=== PATIENT | male | born 1950 | race Caucasian/White ===

== ENCOUNTER 2020-02-22 08:48 | Outpatient (CLI) | payer MEDICARE, OTHER ==
[~2020-02-22] VITALS: Ht 177.8 cm; Wt 129.8 kg
[2020-02-22] VITALS (11 sets, daily range): BP systolic 82–95; BP diastolic 42–57
[2020-02-22] MEDS ORDERED: ALBUMIN HUMAN 25% 100 ML IV ONE ×6 (09:42→11:15)
[2020-02-22] MEDS ORDERED: ALBUMIN HUMAN 25% 200 ML IV ONE (09:43)
[2020-02-22] MEDS ORDERED: LIDOCAINE WITH 8.4% SOD BICARB 3 ML DISP.SYRIN. ONE (09:43)
[2020-02-22] MEDS ORDERED: SITA1TAB11 PO (10:12)
[2020-02-22] MEDS ORDERED: RIFA200T5 PO (10:12)
[2020-02-22] MEDS ORDERED: SPIR25TA PO (10:12)
[2020-02-22] MEDS ORDERED: PROP80CA45 PO (10:12)
[2020-02-22] MEDS ORDERED: MULT-245 PO (10:12)
[2020-02-22] MEDS ORDERED: FURO-68 PO (10:12)
[2020-02-22] MEDS ORDERED: MAGN400T5 PO (10:12)
[2020-02-22] MEDS ORDERED: LACT10SO35 PO (10:12)
[2020-02-22] MEDS ORDERED: PANT40GR PO (10:12)
[2020-02-22] MEDS ORDERED: LIDOCAINE WITH 8.4% SOD BICARB 3 ML DISP.SYRIN. INJ ONE (10:15)
--- NOTE | 2020-02-22 11:54 | NUR ---
Patient came in outpatient for paracentesis, SBP 80's upon arrival. Removed 26,900ml of fluid from abdomen and given Albumin 25% 100ml IV X 4 bottles. Patient tolerated well with no complaints. Blood pressure consistent throughout the paracentesis. Report called to SAVANA Boggs at [facility]. Dr Jordan called and report given, patient ok to return to [facility] per Dr Jordan.
--- NOTE | 2020-02-22 13:48 | RAD ---
Ultrasound-guided paracentesis 02/22/2020 11:44 AM Procedure: The risks and benefits of the procedure were discussed the patient. Informed consent was obtained. A timeout procedure was performed. Sonographic evaluation of the abdomen was performed demonstrating ascites . The right lower quadrant was prepped and draped using maximum sterile barrier technique. 1% lidocaine without epinephrine was administered for local anesthesia. Real-time ultrasonographic guidance was used in passing a 5 Yemeni Yueh catheter into the fluid collection. 27 L of serous ascites was removed. The catheter was removed and pressure held to achieve hemostasis. A sterile dressing was applied. Impression: Successful ultrasound-guided paracentesis
--- NOTE | 2020-02-22 14:45 | NUR ---
Discharge Note: AMANDA HICKMAN Discharge instructions and discharge home medications reviewed with Chava Lucas and a copy given. All questions have been answered and understanding verbalized. The following instructions and handouts were given: Paracentesis. Discontinued lines and drains: Peripheral IV left wrist, dressing clean dry intact. 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
== END 2020-02-22 14:50 | disposition home or self-care (01) ==
LOC: INTRAD 08:48
PROVIDERS: ATTEND Internal Medicine
DX: K74.69 Other cirrhosis of liver (principal); R18.8 Other ascites
CPT/HCPCS: 49083; C1892; J3490; P9046

== ENCOUNTER 2020-02-26 12:12 | Inpatient (IN) | payer MEDICARE, OTHER ==
[2020-02-26] VITALS (14 sets, daily range): BP systolic 59–98; BP diastolic 33–51
[~2020-02-26] VITALS: Ht 177.8 cm; Wt 108.9 kg
[~2020-02-26 12:12] MED LIST: FURO-68 PO; LACT10SO35 PO; MAGN400T5 PO; MULT-245 PO; PANT40GR PO; PROP80CA45 PO; RIFA200T5 PO; SITA1TAB11 PO; SPIR25TA PO
[2020-02-26] MEDS ORDERED: IV NORMAL SALINE 1000ML BAG 1,000 ML IV ONE ×3 (12:30→14:45)
[2020-02-26 13:06] LABS: BASO % 0 % (0-3); EOS % 0 % (0-3); HEMATOCRIT 40.7 % (39.0-53.0); HEMOGLOBIN 13.1 g/dL (13.0-17.5); LYMPH # 0.3 x10^3/uL (1.0-4.8); LYMPH % 3 % (24-48); MEAN CORPUSCULAR HEMOGLOBIN 31 pg (25-35); MEAN CORPUSCULAR HGB CONC 32 g/dL (31-37); MEAN CORPUSCULAR VOLUME 95 fL (79-100); MONO # 1.1 x10^3/uL (0.0-1.1); MONO % 10 % (0-9); NEUT # 9.7 x10^3/uL (1.8-7.7); NEUT % 87 % (31-73); PLATELET COUNT 194 x10^3/uL (140-400); RED BLOOD COUNT 4.28 x10^6/uL (4.30-5.70); RED CELL DISTRIBUTION WIDTH 18.3 % (11.5-14.5); WHITE BLOOD COUNT 11.2 x10^3/uL (4.0-11.0)
[2020-02-26 13:39] LABS: ALBUMIN 2.5 g/dL (3.4-5.0); ALBUMIN/GLOBULIN RATIO 0.6 (1.0-1.7); CALCIUM 8.6 mg/dL (8.5-10.1); CREATININE 5.9 mg/dL (0.7-1.3); GFR 9.6; MAGNESIUM 4.2 mg/dL (1.8-2.4); TOTAL BILIRUBIN 1.6 mg/dL (0.2-1.0); TOTAL PROTEIN 6.8 g/dL (6.4-8.2)
[2020-02-26 13:59] LABS: BASE EXCESS ABG -22 mmol/L (-3-3); HCO3 ABG 5 mmol/L (21-28); PO2 ABG 107 mmHg (65-108); SAT O2 ABG 97 % (92-99)
[2020-02-26 14:02] LABS: PCO2 ABG 16 mmHg (35-46)
[2020-02-26 14:03] LABS: FIO2 ABG 21
[2020-02-26] MEDS ORDERED: SODIUM BICARB ADULT 8.4% 50 MEQ/50 ML DISP.SYRIN. IV ONE (14:15)
--- NOTE | 2020-02-26 14:19 | RAD ---
AP chest. HISTORY: Hypotension AP view was taken of the chest. Patient is not taken a deep inspiration. Heart is upper normal in size. There is mild basilar atelectasis although mild infiltrates are possible. There is no pneumothorax or pleural effusion. IMPRESSION: 1. Poor inspiration with mild basilar atelectasis. Electronically signed by: Danielito Terrell MD (02/26/2020 2:16 PM) [id number]
[2020-02-26 14:24] LABS: % ATYL 1 % (0-0); % BANDS 39 % (0-9); % LYMPHS 4 % (24-48); % METAS 3 % (0-0); % MONOS 13 % (0-10); % MYELOS 2 % (0-0); % SEGS 38 % (35-66)
[2020-02-26 14:27] LABS: PLT ESTIMATE ADEQUATE (ADEQUATE); TOXIC GRANULATION SLIGHT
[2020-02-26] MEDS ORDERED: IV NORMAL SALINE 1000ML BAG 1,000 ML IV SCH (14:40)
[2020-02-26] MEDS ORDERED: ALBUMIN HUMAN 25% 100 ML IV ONE (14:45)
[2020-02-26] MEDS ORDERED: ONDANSETRON PF 4 MG/2 ML VIAL. IV PRN (14:45)
[2020-02-26] MEDS ORDERED: PIPERACILLIN/TAZOBACTAM 3.375 GM in IV NORMAL SALINE 50ML 50 ML IV ONE (14:45)
--- NOTE | 2020-02-26 15:09 | PHYS DOC ---
Past Medical History Past Medical History: A-Fib, Diabetes-Type II, GERD, Hypertension, Other Additional Past Medical Histor: LIVER FAILURE,PORTAL HTN,SHELBY,ESOPHAGEAL VARICES Past Surgical History: Other Additional Past Surgical Histo: UNKNOWN Smoking Status: Never Smoker Alcohol Use: Rarely General Adult EDM: Chief Complaint: HYPOTENSION HPI: HPI: Patient is a 69-year-old male with history of cirrhosis liver failure who lives at [facility] presents today secondary to hypotension. According to the patient approximately 1 week ago interventional radiology took off 26 L of ascites. Patient states that since that time he is been on a progressive decline. He just feels generally very weak. He has not had any fever. He denies any significant abdominal discomfort. [facility] reported today that his blood pressure was in the 70s systolic and he has not been eating and drinking normally. He denies any melena or hematemesis. [] Review of Systems: Review of Systems: Constitutional: Denies fever or chills, reports profound fatigue. [] Eyes: Denies change in visual acuity. [] HENT: Denies nasal congestion or sore throat. [] Respiratory: Denies cough or shortness of breath. [] Cardiovascular: Denies chest pain or edema. [] GI: Denies abdominal pain, nausea, vomiting, bloody stools or diarrhea. [] : Reports decreased urine output. [] Musculoskeletal: Denies back pain or joint pain. [] Integument: Denies rash. [] Neurologic: Denies headache, focal weakness or sensory changes. [] Endocrine: Denies polyuria or polydipsia. [] Lymphatic: Denies swollen glands. [] Psychiatric: Denies depression or anxiety. [] Heart Score: Risk Factors: Risk Factors: DM, Current or recent (<one month) smoker, HTN, HLP, family history of CAD, obesity. Risk Scores: Score 0 - 3: 2.5% MACE over next 6 weeks - Discharge Home Score 4 - 6: 20.3% MACE over next 6 weeks - Admit for Clinical Observation Score 7 - 10: 72.7% MACE over next 6 weeks - Early Invasive Strategies Current Medications: Current Medications Medications (Trade) Dose Ordered Sig/Karley Start Time Stop Time Status Last Admin Dose Admin Albumin Human 100 ml @ 100 mls/hr 1X ONCE 02/26/20 14:45 02/26/20 15:44 Ondansetron HCl (Zofran) 4 mg PRN Q8HRS PRN 02/26/20 14:45 02/27/20 14:44 UNV Piperacillin Sod/ Tazobactam Sod 3.375 gm/Sodium Chloride 50 ml @ 100 mls/hr 1X ONCE 02/26/20 14:45 02/26/20 15:14 Sodium Bicarbonate (Sodium Bicarb Adult 8.4% Syr) 50 meq 1X ONCE 02/26/20 14:15 02/26/20 14:16 DC 02/26/20 14:14 50 MEQ Sodium Chloride 1,000 ml @ 1,000 mls/hr 1X ONCE 02/26/20 14:45 02/26/20 15:44 UNV Allergies: Allergies: Allergies Coded Allergies Type Severity Reaction Last Updated Verified No Known Drug Allergies 02/26/20 No Physical Exam: PE: Constitutional: Well developed, well nourished, appears clinically dehydrated and acutely ill [] HENT: Normocephalic, atraumatic, bilateral external ears normal, oropharynx moist, no oral exudates, nose normal. [] Eyes: PERRLA, EOMI, conjunctiva normal, no discharge. [] Neck: Normal range of motion, no tenderness, supple, no stridor. [] Cardiovascular:Heart rate regular rhythm, no murmur [] Lungs & Thorax: Bilateral breath sounds clear to auscultation [] Abdomen:, Morbidly obese, bowel sounds normal, soft, no tenderness, no masses, no pulsatile masses, there is a dressing in the right lower quadrant with no surrounding erythema. [] Skin: Warm, dry, no erythema, no rash. [] Back: No tenderness, no CVA tenderness. [] Extremities: No tenderness, no cyanosis, no clubbing, ROM intact, no edema. [] Neurologic: Alert and oriented X 3, normal motor function, normal sensory function, no focal deficits noted. [] Psychologic: Depressed. [] Current Patient Data: Labs: Laboratory Tests Test 02/26/20 12:41 02/26/20 12:44 02/26/20 13:50 Glucose (Fingerstick) 104 mg/dL (70-99) H White Blood Count 11.2 x10^3/uL (4.0-11.0) H Red Blood Count 4.28 x10^6/uL (4.30-5.70) L Hemoglobin 13.1 g/dL (13.0-17.5) Hematocrit 40.7 % (39.0-53.0) Mean Corpuscular Volume 95 fL (79-100) Mean Corpuscular Hemoglobin 31 pg (25-35) Mean Corpuscular Hemoglobin Concent 32 g/dL (31-37) Red Cell Distribution Width 18.3 % (11.5-14.5) H Platelet Count 194 x10^3/uL (140-400) Neutrophils (%) (Auto) 87 % (31-73) H Lymphocytes (%) (Auto) 3 % (24-48) L Monocytes (%) (Auto) 10 % (0-9) H Eosinophils (%) (Auto) 0 % (0-3) Basophils (%) (Auto) 0 % (0-3) Neutrophils # (Auto) 9.7 x10^3/uL (1.8-7.7) H Lymphocytes # (Auto) 0.3 x10^3/uL (1.0-4.8) L Monocytes # (Auto) 1.1 x10^3/uL (0.0-1.1) Eosinophils # (Auto) 0.0 x10^3/uL (0.0-0.7) Basophils # (Auto) 0.0 x10^3/uL (0.0-0.2) Segmented Neutrophils % 38 % (35-66) Band Neutrophils % 39 % (0-9) H Lymphocytes % 4 % (24-48) L Atypical Lymphocytes % (Manual) 1 % (0-0) H Monocytes % 13 % (0-10) H Metamyelocytes % 3 % (0-0) H Myelocytes % 2 % (0-0) H Toxic Granulation Slight Platelet Estimate Adequate (ADEQUATE) Prothrombin Time 18.0 SEC (11.7-14.0) H Prothrombin Time INR 1.5 (0.8-1.1) H Sodium Level 131 mmol/L (136-145) L Potassium Level 5.0 mmol/L (3.5-5.1) Chloride Level 93 mmol/L (98-107) L Carbon Dioxide Level 9 mmol/L (21-32) *L Anion Gap 29 (6-14) H Blood Urea Nitrogen 105 mg/dL (8-26) H Creatinine 5.9 mg/dL (0.7-1.3) H Estimated GFR (Cockcroft-Gault) 9.6 BUN/Creatinine Ratio 18 (6-20) Glucose Level 106 mg/dL (70-99) H Lactic Acid Level 13.3 mmol/L (0.4-2.0) *H Calcium Level 8.6 mg/dL (8.5-10.1) Magnesium Level 4.2 mg/dL (1.8-2.4) H Total Bilirubin 1.6 mg/dL (0.2-1.0) H Aspartate Amino Transferase (AST) 23 U/L (15-37) Alanine Aminotransferase (ALT) 17 U/L (16-63) Alkaline Phosphatase 86 U/L (46-116) Ammonia 30 mcmol/L (11-34) Troponin I Quantitative < 0.017 ng/mL (0.000-0.055) Total Protein 6.8 g/dL (6.4-8.2) Albumin 2.5 g/dL (3.4-5.0) L Albumin/Globulin Ratio 0.6 (1.0-1.7) L Thyroid Stimulating Hormone (TSH) 3.276 uIU/mL (0.358-3.74) O2 Saturation 97 % (92-99) Arterial Blood pH 7.13 (7.35-7.45) *L Arterial Blood pCO2 at Patient Temp 16 mmHg (35-46) *L Arterial Blood pO2 at Patient Temp 107 mmHg (65-108) Arterial Blood HCO3 5 mmol/L (21-28) L Arterial Blood Base Excess -22 mmol/L (-3-3) L FiO2 21 Laboratory Tests 02/26/20 12:44 Laboratory Tests 02/26/20 12:44 Vital Signs: Vital Signs Date Time Temp Pulse Resp B/P (MAP) Pulse Ox O2 Delivery O2 Flow Rate FiO2 02/26/20 14:18 64 12 81/46 (58) 100 Room Air 02/26/20 12:12 96.1 96.1 EKG: EKG: EKG: Normal sinus rhythm rate of [address]-T changes [] Radiology/Procedures: Radiology/Procedures: [] Impression: STATUS: REG ER ORD. PHYSICIAN: MARLEN BOSS DO REASON: hypotension PROCEDURE: CHEST AP ONLY AP chest. HISTORY: Hypotension AP view was taken of the chest. Patient is not taken a deep inspiration. Heart is upper normal in size. There is mild basilar atelectasis although mild infiltrates are possible. There is no pneumothorax or pleural effusion. IMPRESSION: 1. Poor inspiration with mild basilar atelectasis. Course & Med Decision Making: Course & Med Decision Making Pertinent Labs and Imaging studies reviewed. (See chart for details) [ED course: Evaluation reveals a 69-year-old male who is recently had 20+ liters of fluid pulled off. Since that time is been on a progressive decline. Today he is in acute renal failure and lactic acidosis. Given what is likely a massive fluid shift I doubt that his lactic acidosis is related to sepsis. In the emergency department he was given a total of 3 L of IV fluid and human albumin. He was also given broad-spectrum antibiotics in the way of Zosyn.] CRITICAL CARE: Time spent was 35 minutes. This includes medical management, evaluation, reevaluation, discussion with consultants and family. Critical Care does NOT include time spent on separately billed procedures. Dragon Disclaimer: Dragon Disclaimer: This electronic medical record was generated, in whole or in part, using a voice recognition dictation system. Departure Departure Impression: Primary Impression: Acute renal failure Qualified Codes: N17.9 - Acute kidney failure, unspecified Additional Impressions: Lactic acidosis Hypotension Qualified Codes: I95.89 - Other hypotension; E86.1 - Hypovolemia Disposition: ADMITTED INPATIENT Admitting Physician: Madi. Bowen Condition: GUARDED Referrals: JORGE LUIS CARLTON MD (PCP) Justicifation of Admission Dx: Justifications for Admission: Justification of Admission Dx: Yes Acute Renal Failure: 3-Fold Rise in Serum Crea MARLEN BOSS DO Feb 26, 2020 15:09
--- NOTE | 2020-02-26 16:22 | PDOC2 ---
GI CONSULT Date of Service: DATE: 02/26/20 TIME: 15:58 Reason For Consult: liver failure HPI: HPI: 69 y/o male seen in ER. From [facility] w/ hypotension and lethargy. Not the greatest historian - indicates he has "put off" seeing his doctor and has fallen a couple times. Notable lab abnormalities here include lactic acid 13.3, WBC 11.2, CO2 9, Na 131, Cr 5.9, BUN 105, INR 1.5, bili 1.6. Hgb and ammonia are normal. He denies h/o renal issues but does have h/o cirrhosis (SHELBY) and follows w/ Dr. Najera. Reports paracentesis x 2, last about 1 week ago with "29 liters" removed, thinks done @ [facility] but not sure. Additionally has had past EGDs for banding of esophageal varices - thinks last ~1 year ago @ [facility]. Med list includes Aldactone 25mg BID, Lasix 40mg BID, Xifaxan, and pantoprazole. Chart also lists h/o right hemicolectomy and Hep A. PMH: PMH: per chart - A Fib, HTN, LIZZIE, DM, GERD, SHELBY/cirrhosis, esophageal varices, cognitive communication deficit FH: Family History: Other (difficult to obtain) Social History: ALCOHOL: none ROS: Difficult to obtain, reports weakness and abdominal distention. Vitals: Vitals: Vital Signs Date Time Temp Pulse Resp B/P (MAP) Pulse Ox O2 Delivery O2 Flow Rate FiO2 02/26/20 14:18 64 12 81/46 (58) 100 Room Air 02/26/20 12:12 96.1 96.1 Labs: Labs: Laboratory Tests Test 02/26/20 12:41 02/26/20 12:44 02/26/20 13:50 Glucose (Fingerstick) 104 mg/dL (70-99) White Blood Count 11.2 x10^3/uL (4.0-11.0) Red Blood Count 4.28 x10^6/uL (4.30-5.70) Hemoglobin 13.1 g/dL (13.0-17.5) Hematocrit 40.7 % (39.0-53.0) Mean Corpuscular Volume 95 fL (79-100) Mean Corpuscular Hemoglobin 31 pg (25-35) Mean Corpuscular Hemoglobin Concent 32 g/dL (31-37) Red Cell Distribution Width 18.3 % (11.5-14.5) Platelet Count 194 x10^3/uL (140-400) Neutrophils (%) (Auto) 87 % (31-73) Lymphocytes (%) (Auto) 3 % (24-48) Monocytes (%) (Auto) 10 % (0-9) Eosinophils (%) (Auto) 0 % (0-3) Basophils (%) (Auto) 0 % (0-3) Neutrophils # (Auto) 9.7 x10^3/uL (1.8-7.7) Lymphocytes # (Auto) 0.3 x10^3/uL (1.0-4.8) Monocytes # (Auto) 1.1 x10^3/uL (0.0-1.1) Eosinophils # (Auto) 0.0 x10^3/uL (0.0-0.7) Basophils # (Auto) 0.0 x10^3/uL (0.0-0.2) Segmented Neutrophils % 38 % (35-66) Band Neutrophils % 39 % (0-9) Lymphocytes % 4 % (24-48) Atypical Lymphocytes % (Manual) 1 % (0-0) Monocytes % 13 % (0-10) Metamyelocytes % 3 % (0-0) Myelocytes % 2 % (0-0) Toxic Granulation Slight Platelet Estimate Adequate (ADEQUATE) Prothrombin Time 18.0 SEC (11.7-14.0) Prothromb Time International Ratio 1.5 (0.8-1.1) Sodium Level 131 mmol/L (136-145) Potassium Level 5.0 mmol/L (3.5-5.1) Chloride Level 93 mmol/L (98-107) Carbon Dioxide Level 9 mmol/L (21-32) Anion Gap 29 (6-14) Blood Urea Nitrogen 105 mg/dL (8-26) Creatinine 5.9 mg/dL (0.7-1.3) Estimated GFR (Cockcroft-Gault) 9.6 BUN/Creatinine Ratio 18 (6-20) Glucose Level 106 mg/dL (70-99) Lactic Acid Level 13.3 mmol/L (0.4-2.0) Calcium Level 8.6 mg/dL (8.5-10.1) Magnesium Level 4.2 mg/dL (1.8-2.4) Total Bilirubin 1.6 mg/dL (0.2-1.0) Aspartate Amino Transf (AST/SGOT) 23 U/L (15-37) Alanine Aminotransferase (ALT/SGPT) 17 U/L (16-63) Alkaline Phosphatase 86 U/L (46-116) Ammonia 30 mcmol/L (11-34) Troponin I Quantitative < 0.017 ng/mL (0.000-0.055) Total Protein 6.8 g/dL (6.4-8.2) Albumin 2.5 g/dL (3.4-5.0) Albumin/Globulin Ratio 0.6 (1.0-1.7) Thyroid Stimulating Hormone (TSH) 3.276 uIU/mL (0.358-3.74) O2 Saturation 97 % (92-99) Arterial Blood pH 7.13 (7.35-7.45) Arterial Blood pCO2 at Patient Temp 16 mmHg (35-46) Arterial Blood pO2 at Patient Temp 107 mmHg (65-108) Arterial Blood HCO3 5 mmol/L (21-28) Arterial Blood Base Excess -22 mmol/L (-3-3) FiO2 21 Allergies: Coded Allergies: No Known Drug Allergies (Unverified , 02/26/20) Medications: Current Medications Medications (Trade) Dose Ordered Sig/Karley Route PRN Reason Start Time Stop Time Status Last Admin Dose Admin Sodium Chloride 1,000 ml @ 1,000 mls/hr 1X ONCE IV 02/26/20 12:30 02/26/20 13:29 DC 02/26/20 13:03 Sodium Chloride 1,000 ml @ 1,000 mls/hr 1X ONCE IV 02/26/20 14:00 02/26/20 14:59 DC 02/26/20 14:14 Sodium Bicarbonate (Sodium Bicarb Adult 8.4% Syr) 50 meq 1X ONCE IV 02/26/20 14:15 02/26/20 14:16 DC 02/26/20 14:14 Piperacillin Sod/ Tazobactam Sod 3.375 gm/Sodium Chloride 50 ml @ 100 mls/hr 1X ONCE IV 02/26/20 14:45 02/26/20 15:14 DC 02/26/20 14:59 Albumin Human 100 ml @ 100 mls/hr 1X ONCE IV 02/26/20 14:45 02/26/20 15:44 DC 02/26/20 14:59 Sodium Chloride 1,000 ml @ 1,000 mls/hr 1X ONCE IV 02/26/20 14:45 02/26/20 15:44 DC 02/26/20 15:13 Imaging: Imaging: CXR 02/25 IMPRESSION: 1. Poor inspiration with mild basilar atelectasis. PE: GEN: chronically ill HEENT: Atraumatic, PERRL LUNGS: diminished anteriorly HEART: RR ABD: very large w/ ascites - not tense, ?site from previous paracentesis in right abdomen w/ bandage, firm round area left periumbilical region EXTREMITY: BLE wrapped SKIN: abdomen mildly erythematous, no warmth NEURO/PSYCH: awake and alert, speaks slowly A/P: A/P: Hypotension, lethargy Lactic acidosis, ANSON H/o cirrhosis/SHELBY, esophageal varices s/p banding, recurrent ascites/paracentesis CRC screen - unclear timing H/o right colectomy - per records R/o COVID-19 -- Reviewed w/ Dr. Rosas. Will ask for abd US, paracentesis, and fluid studies. Blood and urine cultures ordered per ER along w/ ID and renal consults. KRYS CLARK Feb 26, 2020 16:22
[2020-02-26] MEDS ORDERED: PIP/TAZO PER PHARMACY MC PRN (16:45)
[2020-02-26] MEDS ORDERED: C.DIFF MED SCREEN BY RX. MC ONE (16:45)
[2020-02-26] MEDS: NOREPINEPHRINE VIAL 8 MG in IV DEXTROSE 5% 250 ML IV PRN ×2 (16:56→23:17)
[2020-02-26] MEDS ORDERED: MULT-237 PO (17:27)
[2020-02-26] MEDS ORDERED: SITA1TAB11 PO (17:27)
[2020-02-26] MEDS ORDERED: FURO-68 PO (17:27)
[2020-02-26] MEDS ORDERED: PROP80CA53 PO (17:27)
[2020-02-26] MEDS ORDERED: PANT40TA77 PO (17:27)
[2020-02-26] MEDS ORDERED: SPIR25TA PO (17:27)
[2020-02-26] MEDS ORDERED: LACT20SO PO (17:27)
[2020-02-26] MEDS ORDERED: MAGN200T7 PO (17:27)
[2020-02-26] MEDS ORDERED: RIFA550T4 PO (17:27)
[2020-02-26] MEDS: SODIUM BICARBONATE VIAL 150 MEQ in IV DEXTROSE 5% 1,000 ML IV SCH (17:34)
--- NOTE | 2020-02-26 17:50 | NUR ---
Patient arrived on unit at 1600 accompanied by ED RN. Patient alert and oriented x4, slightly drowsy but able to answer admission questions when asked. Patient's IV fluids infusing, patient remains hypotensive. Levophed started. Notified Dr. Davies of consult, order received to give one dose of daptomycin and continue zosyn. Notified Dr. Melvin of consult and anuria, received the order to start D5W with 3 amps of bicarb. Patient's DPOA is a friend, asked patient if he wanted me to notify friend of admission and he said no. Patient in contact and airborne isolation precautions.
[2020-02-26] MEDS ORDERED: DAPTOmycin (GENERIC) IVPB 500 MG in IV NORMAL SALINE 50ML 50 ML IV ONE (18:00)
[2020-02-26] MEDS: PIPERACILLIN/TAZOBACTAM 2.25 GM in IV NORMAL SALINE 50ML 50 ML IV SCH ×2 (18:27→23:36)
[2020-02-26] MEDS: rifAXIMin 550 MG TABLET PO SCH (21:19)
[2020-02-27] VITALS (22 sets, daily range): BP systolic 74–138; BP diastolic 38–84
[2020-02-27] MEDS: SODIUM BICARBONATE VIAL 150 MEQ in IV DEXTROSE 5% 1,000 ML IV SCH ×3 (01:28→18:17)
[2020-02-27] MEDS: NOREPINEPHRINE VIAL 8 MG in IV DEXTROSE 5% 250 ML IV PRN ×3 (01:28→10:55)
--- NOTE | 2020-02-27 03:19 | NUR ---
Pt has had no output in gamez catheter, balloon was deflated and catheter advanced without any urine return. Gamez was then removed and pt refused reinsertion of another gamez. Will continue to monitor urine output, VSS, bed in low/locked position, call light within reach.
[2020-02-27] MEDS: PIPERACILLIN/TAZOBACTAM 2.25 GM in IV NORMAL SALINE 50ML 50 ML IV SCH ×3 (06:19→22:00)
--- NOTE | 2020-02-27 06:57 | PDOC ---
Infectious Disease Note Vital Sign Vital Signs Vital Signs Date Time Temp Pulse Resp B/P (MAP) Pulse Ox O2 Delivery O2 Flow Rate FiO2 02/27/20 06:00 98.0 57 17 78/54 (62) 99 Room Air 98.0 Labs Lab Laboratory Tests Test 02/26/20 12:41 02/26/20 12:44 02/26/20 13:50 02/26/20 20:00 Glucose (Fingerstick) 104 mg/dL (70-99) White Blood Count 11.2 x10^3/uL (4.0-11.0) Red Blood Count 4.28 x10^6/uL (4.30-5.70) Hemoglobin 13.1 g/dL (13.0-17.5) Hematocrit 40.7 % (39.0-53.0) Mean Corpuscular Volume 95 fL (79-100) Mean Corpuscular Hemoglobin 31 pg (25-35) Mean Corpuscular Hemoglobin Concent 32 g/dL (31-37) Red Cell Distribution Width 18.3 % (11.5-14.5) Platelet Count 194 x10^3/uL (140-400) Neutrophils (%) (Auto) 87 % (31-73) Lymphocytes (%) (Auto) 3 % (24-48) Monocytes (%) (Auto) 10 % (0-9) Eosinophils (%) (Auto) 0 % (0-3) Basophils (%) (Auto) 0 % (0-3) Neutrophils # (Auto) 9.7 x10^3/uL (1.8-7.7) Lymphocytes # (Auto) 0.3 x10^3/uL (1.0-4.8) Monocytes # (Auto) 1.1 x10^3/uL (0.0-1.1) Eosinophils # (Auto) 0.0 x10^3/uL (0.0-0.7) Basophils # (Auto) 0.0 x10^3/uL (0.0-0.2) Segmented Neutrophils % 38 % (35-66) Band Neutrophils % 39 % (0-9) Lymphocytes % 4 % (24-48) Atypical Lymphocytes % (Manual) 1 % (0-0) Monocytes % 13 % (0-10) Metamyelocytes % 3 % (0-0) Myelocytes % 2 % (0-0) Toxic Granulation Slight Platelet Estimate Adequate (ADEQUATE) Prothrombin Time 18.0 SEC (11.7-14.0) Prothromb Time International Ratio 1.5 (0.8-1.1) Sodium Level 131 mmol/L (136-145) Potassium Level 5.0 mmol/L (3.5-5.1) Chloride Level 93 mmol/L (98-107) Carbon Dioxide Level 9 mmol/L (21-32) Anion Gap 29 (6-14) Blood Urea Nitrogen 105 mg/dL (8-26) Creatinine 5.9 mg/dL (0.7-1.3) Estimated GFR (Cockcroft-Gault) 9.6 BUN/Creatinine Ratio 18 (6-20) Glucose Level 106 mg/dL (70-99) Lactic Acid Level 13.3 mmol/L (0.4-2.0) 11.7 mmol/L (0.4-2.0) Calcium Level 8.6 mg/dL (8.5-10.1) Magnesium Level 4.2 mg/dL (1.8-2.4) Total Bilirubin 1.6 mg/dL (0.2-1.0) Aspartate Amino Transf (AST/SGOT) 23 U/L (15-37) Alanine Aminotransferase (ALT/SGPT) 17 U/L (16-63) Alkaline Phosphatase 86 U/L (46-116) Ammonia 30 mcmol/L (11-34) Troponin I Quantitative < 0.017 ng/mL (0.000-0.055) Total Protein 6.8 g/dL (6.4-8.2) Albumin 2.5 g/dL (3.4-5.0) Albumin/Globulin Ratio 0.6 (1.0-1.7) Thyroid Stimulating Hormone (TSH) 3.276 uIU/mL (0.358-3.74) O2 Saturation 97 % (92-99) Arterial Blood pH 7.13 (7.35-7.45) Arterial Blood pCO2 at Patient Temp 16 mmHg (35-46) Arterial Blood pO2 at Patient Temp 107 mmHg (65-108) Arterial Blood HCO3 5 mmol/L (21-28) Arterial Blood Base Excess -22 mmol/L (-3-3) FiO2 21 Objective Assessment Leukocytosis ANSON Lactic acidosis Hypotension - On Levophed Afib Very poor historian Plan Plan of Care Cont Zosyn and dosed Daptomycin 02/25 F/u labs and cults - Labs not obtained yet today Dose Micafungin as at risk for yeast Await Paracentesis Critically ill D/w nursing 35 mins CC time # [id number] JAMEY NICOLAS MD Feb 27, 2020 06:57
[2020-02-27] MEDS: PANTOPRAZOLE 40 MG TABLET.DR. PO SCH (07:30)
--- NOTE | 2020-02-27 08:25 | EKG ---
[facility] [address] [place] [address] Test Date: 2020-02-26 Test Time: 12:28:40 Pat Name: AMANDA BARRY Department: Room: Gender: M Automotive Product Engineer: : [id number] Requested By: MARLEN BOSS Order Number: [id number] Reading MD: Measurements Intervals [place] Rate: 64 P: 39 MT: 242 QRS: -16 QRSD: 114 T: 22 QT: 512 QTc: 533 Interpretive Statements SINUS RHYTHM PROLONGED MT INTERVAL LEFTWARD AXIS R-S TRANSITION ZONE IN V LEADS DISPLACED TO THE LEFT LOW LIMB LEAD VOLTAGE PROLONGED QT ABNORMAL ECG RI6.02 No previous ECG available for comparison
[2020-02-27 08:53] LABS: BASE EXCESS ABG -20 mmol/L (-3-3); HCO3 ABG 6 mmol/L (21-28); PO2 ABG 98 mmHg (65-108); SAT O2 ABG 97 % (92-99)
[2020-02-27 08:56] LABS: PCO2 ABG 16 mmHg (35-46)
[2020-02-27 08:57] LABS: FIO2 ABG 21
[2020-02-27] MEDS: rifAXIMin 550 MG TABLET PO SCH ×2 (09:00→21:27)
--- NOTE | 2020-02-27 09:07 | HP ---
ADMIT DATE: 02/26/2020 HISTORY OF PRESENT ILLNESS: The patient is a 69-year-old male patient, a resident at [facility], who was noted by the nursing staff to be hypotensive and also somewhat lethargic and very weak. Denied, however, any nausea, vomiting, diarrhea or constipation. Denied any hematemesis, melena, hematochezia about a week ago. He underwent paracentesis and approximately 26 liters of ascitic fluid were removed. The patient stated that since that time, he has been on a progressive decline. His systolic pressure was only 70 and the patient has not been eating or drinking. He was evaluated in the Emergency Room and on arrival, his systolic pressure was only 70. His lab work showed that he has mild leukocytosis and he has also hyponatremia, acute kidney injury. His BUN has dramatically risen to 105, creatinine 5.9. He has severe hypoalbuminemia with serum albumin of 1.6 and hypomagnesemia. His blood gases showed a pH of 7.13, pCO2 of 16, bicarb of 5. His prothrombin time was 18, INR 1.5. The patient was admitted with acute renal failure, likely due to fluid shift versus hepatorenal syndrome, has also possible sepsis. His serum lactic acid was elevated up to 13.3. The patient did receive 2 liters of fluid in the Emergency Room and by the time he was admitted to the ICU, his blood pressure went up to 98/51, although he continued to be oliguric. PAST MEDICAL HISTORY: Significant for nonalcoholic steatohepatitis with liver cirrhosis, portal hypertension, esophageal varices and recurrent ascites. He has had at least 2 paracenteses at [facility] where each time they took about 16-18 liters. The most recent was about 7 days ago done by the interventional radiologist where 26 liters of fluid were removed. Other medical problems include essential hypertension, type 2 diabetes, paroxysmal atrial fibrillation, morbid obesity, obstructive sleep apnea, history of hepatitis A, history of right hemicolectomy. PAST SURGICAL HISTORY: Significant for right hemicolectomy. He had had multiple EGDs and colonoscopy. His television director is Dr. Hernandez. FAMILY HISTORY: Noncontributory. 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 He does not smoke, drink alcohol or use any recreational drugs. REVIEW OF SYSTEMS: As per history of present illness. The patient denied any hematemesis, melena or hematochezia. He denied any chills, rigors or fever. MEDICATIONS: He is currently on following medications: He is on spironolactone 25 mg once a day. He is on Inderal 80 mg extended release 1 tablet once a day. He is on Janumet or sitagliptin/metformin one tablet twice a day, lactulose 45 mL every 4 hours. He is on Lasix 40 mg twice a day, magnesium oxide 400 mg twice a day, multivitamin with mineral 1 tablet once a day, Protonix 40 mg once a day, Xifaxan 550 mg twice a day. PHYSICAL EXAMINATION: GENERAL: On arrival to the Emergency Room, he was somewhat lethargic, but arousable. There is no pallor, jaundice or cyanosis. No lymphadenopathy, no thyromegaly. No jugular venous distention, but mild bilateral lower limb edema. VITAL SIGNS: His heart rate was 65, blood pressure was 76/40, temperature was 96.1, respiratory rate was 20, and oxygen saturation was 94%. HEAD, EYES, EARS, NOSE AND THROAT: Normocephalic, atraumatic. NECK: Supple. HEART: Showed normal first and second heart sounds with no gallop, rub or murmur. CHEST: Clear to auscultation. No crepitation or rhonchi. ABDOMEN: Markedly distended, soft, nontender. There is no guarding or rigidity. No organomegaly with positive shifting dullness. NEUROLOGIC: He is awake, alert, somewhat lethargic, but arousable. All cranial nerves are intact. He moves upper extremities to much good extent than lower extremities. LABORATORY DATA: His lab work on arrival showed a white cell count of 11,200, hemoglobin 13, hematocrit 40, MCV 95, and platelet count of 194,000. His blood gases showed a pH of 7.13, pCO2 of 16, pO2 of 107, bicarbonate 5 and oxygen saturation was 97% on FiO2 of 21%. His prothrombin time was 18, INR 1.5. His chemistry showed a serum sodium 131, potassium 5, chloride 93, bicarbonate 9, anion gap of 29, BUN of 105, creatinine was 5.9, estimated GFR was 9.6, glucose was 106, calcium was 8.4, magnesium was 4.2. Total bilirubin 1.6. AST, ALT, alkaline phosphatase were normal. His total protein was 6.8, albumin was 2.5. His serum lactic acid was 13.3. Ammonia was only 30 and TSH was normal at 3.276. His chemistry on 02/18 showed a serum sodium 134, potassium 3.7, chloride 101, bicarbonate 20, glucose 120, BUN 35, creatinine 1.2, estimated GFR was 60 mL per minute. His calcium at that time was 8.6. Total protein 6.4, albumin 2.5. His total bilirubin, AST, ALT were normal. Alkaline phosphatase slightly elevated. His prothrombin time was 12.2, INR 1.2. His white cell count was 7700, hemoglobin 12, hematocrit 37, MCV 92, and platelet count 255,000 and his most recent ammonia on 02/18 was 101 mcg/dL. ASSESSMENT AND PLAN: In summary, this is a 69-year-old male patient with nonalcoholic steatohepatitis with liver cirrhosis, portal hypertension, esophageal varices and recurrent ascites that required multiple paracentesis, the last one was done about 10 days ago and about 26 liters of ascitic fluid were drained, did receive about 4 times of 25% human albumin. He clearly has acute kidney injury as baseline creatinine was 1.2 and on admission was 5.9. His BUN on 02/18 was 35, on admission was 105. His kidney failure is probably multifactorial as he continued to be on Lasix, spironolactone. He also continues to be on lactulose 45 mL every 4 hours and was also getting 80 mg of Inderal. Unfortunately, he continues to be also on metformin 1000 mg twice a day. All these medications are on hold now. He received 2 liters of normal saline while at the Emergency Room and we consulted the new autos delivery driver, the television director and Infectious Disease as he has lactic acidosis, probably due to hypoperfusion; however, sepsis is also a possibility as he has ascites and possible spontaneous bacterial peritonitis. We will continue with bicarbonate drip and continued IV antibiotic in the form of Zosyn as well as Levophed because of hypotension. The patient will repeat all his lab work and decide on further management accordingly. He has also other medical problems include hypertension; however, the patient is currently hypotensive, has type 2 diabetes mellitus, paroxysmal atrial fibrillation, obstructive sleep apnea. We will use SCDs for DVT prophylaxis. JORGE LUIS CARLTON MD DR: ZACK/lauryn JOB#: [id number] / [id number]
[2020-02-27 09:45] LABS: BASO % 0 % (0-3); EOS # 0.2 x10^3/uL (0.0-0.7); EOS % 2 % (0-3); HEMATOCRIT 47.4 % (39.0-53.0); HEMOGLOBIN 15.1 g/dL (13.0-17.5); LYMPH # 0.4 x10^3/uL (1.0-4.8); LYMPH % 3 % (24-48); MEAN CORPUSCULAR HEMOGLOBIN 31 pg (25-35); MEAN CORPUSCULAR HGB CONC 32 g/dL (31-37); MEAN CORPUSCULAR VOLUME 98 fL (79-100); MONO # 1.3 x10^3/uL (0.0-1.1); MONO % 10 % (0-9); NEUT # 10.6 x10^3/uL (1.8-7.7); NEUT % 85 % (31-73); PLATELET COUNT 163 x10^3/uL (140-400); RED BLOOD COUNT 4.85 x10^6/uL (4.30-5.70); RED CELL DISTRIBUTION WIDTH 19.3 % (11.5-14.5); WHITE BLOOD COUNT 12.5 x10^3/uL (4.0-11.0)
[2020-02-27 09:52] LABS: ALBUMIN 2.4 g/dL (3.4-5.0); ALBUMIN/GLOBULIN RATIO 0.5 (1.0-1.7); CALCIUM 8.2 mg/dL (8.5-10.1); GFR 9.4; POTASSIUM 4.9 mmol/L (3.5-5.1); TOTAL BILIRUBIN 1.6 mg/dL (0.2-1.0); TOTAL PROTEIN 7.3 g/dL (6.4-8.2)
--- NOTE | 2020-02-27 09:57 | PDOC2 ---
CONSULT Date of Consult Date of Consult DATE: 02/27/20 TIME: 09:56 Reason for Consult Reason for Consult: ANSON, Acidosis Source Source: Chart review History of Present Illness Reason for Visit: Pt is a 69-year-old CM a resident at [facility], who was noted by the nursing staff to be hypotensive, lethargic and weak. No nausea, vomiting, diarrhea or constipation. He underwent paracentesis and approximately 26 liters of ascitic fluid were removed. He has had progress kishor decline since then. His systolic was only 70 and the he has not been eating or drinking. On arrival to ER systolic pressure was only 70. He has Hyponatremia, ANSON, Acidosis , Increased Lactic acid hyponatremia, acute kidney injury He is Not intubated ,on O2 by MT . On Pressors . Per nursing No UOP, he had a Henning in place which has been removed- reason unknown. Abdomen distended Past Medical History Past Medical History Significant for nonalcoholic steatohepatitis with liver cirrhosis, portal hypertension, esophageal varices and recurrent ascites. He has had at least 2 paracenteses at [facility] where each time they took about 16-18 liters. The most recent was about 7 days ago done by the interventional radiologist where 26 liters of fluid were removed. Other medical problems include essential hypertension, type 2 diabetes, paroxysmal atrial fibrillation, morbid obesity, obstructive sleep apnea, history of hepatitis A, history of right hemicolectomy. Past Surgical History Past Surgical History Significant for right hemicolectomy. He had had multiple EGDs and colonoscopy. His staff training and development manager is Dr. Hernandez. Family History Family History : Noncontributory. 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 He does not smoke, drink alcohol or use any recreational drugs. Currently was at [facility] ALCOHOL: none Current Problem List Problem List Problems Medical Problems: (1) Acute renal failure Status: Acute (2) Hypotension Status: Acute (3) Lactic acidosis Status: Acute Current Medications Current Medications Current Medications Sodium Chloride 1,000 ml @ 1,000 mls/hr 1X ONCE IV Last administered on 02/26/20at 13:03; Start 02/26/20 at 12:30; Stop 02/26/20 at 13:29; Status DC Sodium Chloride 1,000 ml @ 1,000 mls/hr 1X ONCE IV Last administered on 02/26/20at 14:14; Start 02/26/20 at 14:00; Stop 02/26/20 at 14:59; Status DC Sodium Bicarbonate (Sodium Bicarb Adult 8.4% Syr) 50 meq 1X ONCE IV Last administered on 02/26/20at 14:14; Start 02/26/20 at 14:15; Stop 02/26/20 at 14:16; Status DC Piperacillin Sod/ Tazobactam Sod 3.375 gm/Sodium Chloride 50 ml @ 100 mls/hr 1X ONCE IV Last administered on 02/26/20at 14:59; Start 02/26/20 at 14:45; Stop 02/26/20 at 15:14; Status DC Albumin Human 100 ml @ 100 mls/hr 1X ONCE IV Last administered on 02/26/20at 14:59; Start 02/26/20 at 14:45; Stop 02/26/20 at 15:44; Status DC Ondansetron HCl (Zofran) 4 mg PRN Q8HRS PRN IV NAUSEA/VOMITING; Start 02/26/20 at 14:45; Stop 02/27/20 at 14:44 Sodium Chloride 1,000 ml @ 150 mls/hr Q6H40M IV Last administered on 02/26/20at 16:28; Start 02/26/20 at 14:40; Stop 02/26/20 at 18:19; Status DC Sodium Chloride 1,000 ml @ 1,000 mls/hr 1X ONCE IV Last administered on 02/26/20at 15:13; Start 02/26/20 at 14:45; Stop 02/26/20 at 15:44; Status DC Pantoprazole Sodium (Protonix) 40 mg DAILYAC PO ; Start 02/27/20 at 07:30 Rifaximin (Xifaxan) 550 mg Q12HR PO Last administered on 02/26/20at 21:19; Start 02/26/20 at 21:00 Norepinephrine Bitartrate 8 mg/ Dextrose 258 ml @ 24.188 mls/ hr CONT PRN IV PER PROTOCOL Last administered on 02/27/20at 06:20; Start 02/26/20 at 16:30 Piperacillin Sod/ Tazobactam Sod (Zosyn Per Pharmacy) 1 each PRN DAILY PRN MC SEE COMMENTS; Start 02/26/20 at 16:45 Daptomycin 500 mg/ Sodium Chloride 50 ml @ 100 mls/hr 1X ONCE IV Last administered on 02/26/20at 17:34; Start 02/26/20 at 18:00; Stop 02/26/20 at 1 8:29; Status DC Piperacillin Sod/ Tazobactam Sod 2.25 gm/Sodium Chloride 50 ml @ 100 mls/hr Q8HRS IV Last administered on 02/27/20at 06:19; Start 02/26/20 at 17:00 Pharmacy Consult (C.diff Med Screen By Rx) 1 each 1X ONCE MC ; Start 02/26/20 at 16:45; Stop 02/26/20 at 16:50; Status DC Sodium Bicarbonate 150 meq/Dextrose 1,150 ml @ 150 mls/hr Q7H40M IV Last administered on 02/27/20at 01:28; Start 02/26/20 at 17:30 Micafungin Sodium 100 mg/Dextrose 100 ml @ 100 mls/hr Q24H IV ; Start 02/27/20 at 09:00 Active Scripts Active Reported Xifaxan (Rifaximin) 550 Mg Tablet 1 Tab PO BID 10 Days Pantoprazole Sodium (Pantoprazole Sodium) 40 Mg Tablet.dr 40 Mg PO DAILYAC Daily Vitamin Formula-Minerals (Multivitamin With Minerals) 1 Each Tablet 1 Tab PO DAILY 30 Days Mag-Oxide (Magnesium Oxide) 200 Mg Tablet 400 Mg PO BID Lasix (Furosemide) 40 Mg Tablet 40 Mg PO BID Lactulose 20 Gm/30 Ml Solution 10 Gm PO Q4HRS Janumet 50-1,000 Mg Tablet (Sitagliptin Phos/Metformin Hcl) 1 Each Tablet 1 Tab PO BID Inderal Xl (Propranolol Hcl) 80 Mg Cap.er.24h 1 Cap PO DAILY 30 Days Aldactone (Spironolactone) 25 Mg Tablet 1 Tab PO BID Allergies Allergies: Coded Allergies: No Known Drug Allergies (Unverified , 02/26/20) ROS Review of System As per HPI, rest of the ROS is negative Physical Exam Physical Exam GENERAL no acute distress , lying in bed. HEENT: Oropharynx dry NECK: Supple. LUNGS: Decreased in the bases, non labored HEART: S1, S2. ABDOMEN: Distended , ascites + no tenderness. ,left periumbilical area EXTREMITIES: No clubbing, cyanosis. chronic lower extremity edema SKIN: No rash. NEUROLOGIC: Awake,,answers questions, moves all extremities, but is confused. No Henning, No CVA or SP tenderness Vital Signs Vital Signs Date Time Temp Pulse Resp B/P (MAP) Pulse Ox O2 Delivery O2 Flow Rate FiO2 02/27/20 09:00 58 12 96/50 (65) 98 Room Air 02/27/20 08:00 98.2 98.2 Assessment & Plan ANSON - ATN 2/2 Sepsis /Hypotension vs Hepatorenal Syndrome , Large Volume Paracentesis(26 lts) recently, as well as on Lasix and Aldactone Anuric per nursing report, Juvencio was dced Severe Metabolic abnormalities ,Will initiate HD today with Temp HDC ,Treatment plan jone Munson Supportive care, avoid nephrotoxins, Recommend Henning , UA , Elective Renal US Metabolic acidosis- severe - Multifactorial , Has been on Metformin as well On IV Bicarb HD today HypoNatremia - suspect 2/2 Cirrhosis Nonalcoholic steatohepatitis with liver cirrhosis,, portal hypertension,esophageal varices Recurrent ascites that required multiple paracentesis- most recent 7-10 days ago with removal of 26 liters of fluid Received 25% albumin x 4; He was also on Lasix and Aldactone Scheduled for Paracentesis today CKD stage 2/3 - Baseline Cr 1.2 and BUN 35 on 02/18 DM- On metformin at the facility Leukocytosis/ lactic Acidosis Hypertension- currently Hypotensive and on Levophed. Hx of Paroxysmal Atrial fibrillation. H/o right colectomy CoViD PUI (Negative on January 08) Discussed with RN Labs Labs Laboratory Tests Test 02/26/20 12:41 02/26/20 12:44 02/26/20 13:50 02/26/20 20:00 Glucose (Fingerstick) 104 mg/dL (70-99) White Blood Count 11.2 x10^3/uL (4.0-11.0) Red Blood Count 4.28 x10^6/uL (4.30-5.70) Hemoglobin 13.1 g/dL (13.0-17.5) Hematocrit 40.7 % (39.0-53.0) Mean Corpuscular Volume 95 fL (79-100) Mean Corpuscular Hemoglobin 31 pg (25-35) Mean Corpuscular Hemoglobin Concent 32 g/dL (31-37) Red Cell Distribution Width 18.3 % (11.5-14.5) Platelet Count 194 x10^3/uL (140-400) Neutrophils (%) (Auto) 87 % (31-73) Lymphocytes (%) (Auto) 3 % (24-48) Monocytes (%) (Auto) 10 % (0-9) Eosinophils (%) (Auto) 0 % (0-3) Basophils (%) (Auto) 0 % (0-3) Neutrophils # (Auto) 9.7 x10^3/uL (1.8-7.7) Lymphocytes # (Auto) 0.3 x10^3/uL (1.0-4.8) Monocytes # (Auto) 1.1 x10^3/uL (0.0-1.1) Eosinophils # (Auto) 0.0 x10^3/uL (0.0-0.7) Basophils # (Auto) 0.0 x10^3/uL (0.0-0.2) Segmented Neutrophils % 38 % (35-66) Band Neutrophils % 39 % (0-9) Lymphocytes % 4 % (24-48) Atypical Lymphocytes % (Manual) 1 % (0-0) Monocytes % 13 % (0-10) Metamyelocytes % 3 % (0-0) Myelocytes % 2 % (0-0) Toxic Granulation Slight Platelet Estimate Adequate (ADEQUATE) Prothrombin Time 18.0 SEC (11.7-14.0) Prothromb Time International Ratio 1.5 (0.8-1.1) Sodium Level 131 mmol/L (136-145) Potassium Level 5.0 mmol/L (3.5-5.1) Chloride Level 93 mmol/L (98-107) Carbon Dioxide Level 9 mmol/L (21-32) Anion Gap 29 (6-14) Blood Urea Nitrogen 105 mg/dL (8-26) Creatinine 5.9 mg/dL (0.7-1.3) Estimated GFR (Cockcroft-Gault) 9.6 BUN/Creatinine Ratio 18 (6-20) Glucose Level 106 mg/dL (70-99) Lactic Acid Level 13.3 mmol/L (0.4-2.0) 11.7 mmol/L (0.4-2.0) Calcium Level 8.6 mg/dL (8.5-10.1) Magnesium Level 4.2 mg/dL (1.8-2.4) Total Bilirubin 1.6 mg/dL (0.2-1.0) Aspartate Amino Transf (AST/SGOT) 23 U/L (15-37) Alanine Aminotransferase (ALT/SGPT) 17 U/L (16-63) Alkaline Phosphatase 86 U/L (46-116) Ammonia 30 mcmol/L (11-34) Troponin I Quantitative < 0.017 ng/mL (0.000-0.055) Total Protein 6.8 g/dL (6.4-8.2) Albumin 2.5 g/dL (3.4-5.0) Albumin/Globulin Ratio 0.6 (1.0-1.7) Thyroid Stimulating Hormone (TSH) 3.276 uIU/mL (0.358-3.74) O2 Saturation 97 % (92-99) Arterial Blood pH 7.13 (7.35-7.45) Arterial Blood pCO2 at Patient Temp 16 mmHg (35-46) Arterial Blood pO2 at Patient Temp 107 mmHg (65-108) Arterial Blood HCO3 5 mmol/L (21-28) Arterial Blood Base Excess -22 mmol/L (-3-3) FiO2 21 Test 02/27/20 08:40 02/27/20 09:25 O2 Saturation 97 % (92-99) Arterial Blood pH 7.17 (7.35-7.45) Arterial Blood pCO2 at Patient Temp 16 mmHg (35-46) Arterial Blood pO2 at Patient Temp 98 mmHg (65-108) Arterial Blood HCO3 6 mmol/L (21-28) Arterial Blood Base Excess -20 mmol/L (-3-3) FiO2 21 White Blood Count 12.5 x10^3/uL (4.0-11.0) Red Blood Count 4.85 x10^6/uL (4.30-5.70) Hemoglobin 15.1 g/dL (13.0-17.5) Hematocrit 47.4 % (39.0-53.0) Mean Corpuscular Volume 98 fL (79-100) Mean Corpuscular Hemoglobin 31 pg (25-35) Mean Corpuscular Hemoglobin Concent 32 g/dL (31-37) Red Cell Distribution Width 19.3 % (11.5-14.5) Platelet Count 163 x10^3/uL (140-400) Neutrophils (%) (Auto) 85 % (31-73) Lymphocytes (%) (Auto) 3 % (24-48) Monocytes (%) (Auto) 10 % (0-9) Eosinophils (%) (Auto) 2 % (0-3) Basophils (%) (Auto) 0 % (0-3) Neutrophils # (Auto) 10.6 x10^3/uL (1.8-7.7) Lymphocytes # (Auto) 0.4 x10^3/uL (1.0-4.8) Monocytes # (Auto) 1.3 x10^3/uL (0.0-1.1) Eosinophils # (Auto) 0.2 x10^3/uL (0.0-0.7) Basophils # (Auto) 0.0 x10^3/uL (0.0-0.2) Laboratory Tests Test 02/26/20 12:41 02/26/20 12:44 02/26/20 13:50 02/26/20 20:00 Glucose (Fingerstick) 104 mg/dL (70-99) White Blood Count 11.2 x10^3/uL (4.0-11.0) Red Blood Count 4.28 x10^6/uL (4.30-5.70) Hemoglobin 13.1 g/dL (13.0-17.5) Hematocrit 40.7 % (39.0-53.0) Mean Corpuscular Volume 95 fL (79-100) Mean Corpuscular Hemoglobin 31 pg (25-35) Mean Corpuscular Hemoglobin Concent 32 g/dL (31-37) Red Cell Distribution Width 18.3 % (11.5-14.5) Platelet Count 194 x10^3/uL (140-400) Neutrophils (%) (Auto) 87 % (31-73) Lymphocytes (%) (Auto) 3 % (24-48) Monocytes (%) (Auto) 10 % (0-9) Eosinophils (%) (Auto) 0 % (0-3) Basophils (%) (Auto) 0 % (0-3) Neutrophils # (Auto) 9.7 x10^3/uL (1.8-7.7) Lymphocytes # (Auto) 0.3 x10^3/uL (1.0-4.8) Monocytes # (Auto) 1.1 x10^3/uL (0.0-1.1) Eosinophils # (Auto) 0.0 x10^3/uL (0.0-0.7) Basophils # (Auto) 0.0 x10^3/uL (0.0-0.2) Segmented Neutrophils % 38 % (35-66) Band Neutrophils % 39 % (0-9) Lymphocytes % 4 % (24-48) Atypical Lymphocytes % (Manual) 1 % (0-0) Monocytes % 13 % (0-10) Metamyelocytes % 3 % (0-0) Myelocytes % 2 % (0-0) Toxic Granulation Slight Platelet Estimate Adequate (ADEQUATE) Prothrombin Time 18.0 SEC (11.7-14.0) Prothromb Time International Ratio 1.5 (0.8-1.1) Sodium Level 131 mmol/L (136-145) Potassium Level 5.0 mmol/L (3.5-5.1) Chloride Level 93 mmol/L (98-107) Carbon Dioxide Level 9 mmol/L (21-32) Anion Gap 29 (6-14) Blood Urea Nitrogen 105 mg/dL (8-26) Creatinine 5.9 mg/dL (0.7-1.3) Estimated GFR (Cockcroft-Gault) 9.6 BUN/Creatinine Ratio 18 (6-20) Glucose Level 106 mg/dL (70-99) Lactic Acid Level 13.3 mmol/L (0.4-2.0) 11.7 mmol/L (0.4-2.0) Calcium Level 8.6 mg/dL (8.5-10.1) Magnesium Level 4.2 mg/dL (1.8-2.4) Total Bilirubin 1.6 mg/dL (0.2-1.0) Aspartate Amino Transf (AST/SGOT) 23 U/L (15-37) Alanine Aminotransferase (ALT/SGPT) 17 U/L (16-63) Alkaline Phosphatase 86 U/L (46-116) Ammonia 30 mcmol/L (11-34) Troponin I Quantitative < 0.017 ng/mL (0.000-0.055) Total Protein 6.8 g/dL (6.4-8.2) Albumin 2.5 g/dL (3.4-5.0) Albumin/Globulin Ratio 0.6 (1.0-1.7) Thyroid Stimulating Hormone (TSH) 3.276 uIU/mL (0.358-3.74) O2 Saturation 97 % (92-99) Arterial Blood pH 7.13 (7.35-7.45) Arterial Blood pCO2 at Patient Temp 16 mmHg (35-46) Arterial Blood pO2 at Patient Temp 107 mmHg (65-108) Arterial Blood HCO3 5 mmol/L (21-28) Arterial Blood Base Excess -22 mmol/L (-3-3) FiO2 21 Test 02/27/20 08:40 02/27/20 09:25 O2 Saturation 97 % (92-99) Arterial Blood pH 7.17 (7.35-7.45) Arterial Blood pCO2 at Patient Temp 16 mmHg (35-46) Arterial Blood pO2 at Patient Temp 98 mmHg (65-108) Arterial Blood HCO3 6 mmol/L (21-28) Arterial Blood Base Excess -20 mmol/L (-3-3) FiO2 21 White Blood Count 12.5 x10^3/uL (4.0-11.0) Red Blood Count 4.85 x10^6/uL (4.30-5.70) Hemoglobin 15.1 g/dL (13.0-17.5) Hematocrit 47.4 % (39.0-53.0) Mean Corpuscular Volume 98 fL (79-100) Mean Corpuscular Hemoglobin 31 pg (25-35) Mean Corpuscular Hemoglobin Concent 32 g/dL (31-37) Red Cell Distribution Width 19.3 % (11.5-14.5) Platelet Count 163 x10^3/uL (140-400) Neutrophils (%) (Auto) 85 % (31-73) Lymphocytes (%) (Auto) 3 % (24-48) Monocytes (%) (Auto) 10 % (0-9) Eosinophils (%) (Auto) 2 % (0-3) Basophils (%) (Auto) 0 % (0-3) Neutrophils # (Auto) 10.6 x10^3/uL (1.8-7.7) Lymphocytes # (Auto) 0.4 x10^3/uL (1.0-4.8) Monocytes # (Auto) 1.3 x10^3/uL (0.0-1.1) Eosinophils # (Auto) 0.2 x10^3/uL (0.0-0.7) Basophils # (Auto) 0.0 x10^3/uL (0.0-0.2) Review All relevant outside records, renal labs, imaging studies, telemetry/EKG's were reviewed. Images Images CxR-- 1. Poor inspiration with mild basilar atelectasis. ANATOLY JOHNSON MD Feb 27, 2020 09:57
[2020-02-27] MEDS ORDERED: LIDOCAINE WITH 8.4% SOD BICARB 3 ML DISP.SYRIN. ONE (09:59)
[2020-02-27] MEDS: MICAFUNGIN 100 MG in IV DEXTROSE 5% 100ML 100 ML IV SCH (10:03)
--- NOTE | 2020-02-27 10:20 | CONS ---
DATE OF CONSULTATION: 02/27/2020 INFECTIOUS DISEASE CONSULTATION NOTE LOCATION: The patient's room is 118. REQUESTING PHYSICIAN: Dr. Jordan. REASON FOR CONSULTATION: Questionable SBP. HISTORY OF PRESENT ILLNESS: The patient is a 69-year-old gentleman who is a [facility] resident, is a very poor historian, does have a history of documented cognitive communication deficit as well as cirrhosis and SHELBY. He was brought to [facility] yesterday afternoon secondary to complaints of hypotension. Apparently, there was a note that he had a paracentesis approximately a week ago and was documented that he had 26 liters of ascites removed, but obviously this appeared to be a typo. Since that time, he has had progressive decline and generally feeling weak, so he was transferred to [facility]. On arrival, he had a white count of 11.2 with 39% bands. His creatinine was elevated at 5.9. He had normal liver function study tests. Albumin was 2.5, although his carbon dioxide was 9. Lactic acid was documented at 13.3 with a repeat of 11.7. He underwent a chest x-ray, showed poor inspiration with mild basilar atelectasis. He was given a dose of Zosyn. I was contacted late in the afternoon, instituted Zosyn per pharmacy and also dosed daptomycin x 1 given his acute kidney injury and no apparent respiratory issues. Currently, the patient is lying in bed. He denies any fevers or chills or sweats. He has no headaches. He is dry, would like to drink water. He has no cough or chest pain. Denies any abdominal pain or discomfort. No diarrhea. No complications passing his urine. PAST MEDICAL HISTORY: Positive for portal hypertension. He has SHELBY, hepatic failure, acidosis, esophageal varices, history of previous lower extremity wounds, type 2 diabetes, morbid obesity, obstructive sleep apnea, essential hypertension, paroxysmal atrial fibrillation, gastroesophageal reflux disease, osteoarthritis, muscle weakness, cognitive communication. Also, has lymphedema. At [place], he was not taking any antibiotics based on records sent. On 02/19/2020, he had a white count of 7.7. REVIEW OF SYSTEMS: As mentioned above. ALLERGIES: No known drug allergies. SOCIAL HISTORY: He is a [facility] resident. Denies any alcohol. FAMILY HISTORY: Unknown. CURRENT MEDICATIONS: Include the Zosyn, the daptomycin x 1. He did receive albumin. He is on Levophed, Protonix, and rifaximin. PHYSICAL EXAMINATION: VITAL SIGNS: He has been afebrile, temp currently is 98, pulse 56, respirations 15, blood pressure is 98/52, currently he is on Levophed, had been down in the 60s/30s. Currently, he is 97% on room air. CONSTITUTIONAL: He appears comfortable. He is in no acute distress. He is lying in bed. HEENT: He has normal conjunctivae. Oral cavity: Oropharynx was dry but clear. NECK: Supple. No fullness. LUNGS: Decreased in the bases. HEART: S1, S2. ABDOMEN: Large. He has ascites. There is no gross tenderness. He has firmness around the area in the left periumbilical area that is without redness, it is nontender, does not reduce. There is no bruising. There is no warmth. EXTREMITIES: No clubbing, cyanosis. He has got chronic lower extremity edema and changes. SKIN: Warm to touch without generalized signs of rash. NEUROLOGIC: He answers questions, moves all extremities, but is confused. PSYCHIATRIC: Affect is pleasant. LABORATORY AND DIAGNOSTIC DATA: Laboratory values: White count 11.2, hemoglobin of 13.1, platelets of 194, segs were 38, bands 39, lymphs were 4. Most recent lactic was 11.7. Normal troponin. Creatinine was 5.9, BUN of 105, glucose 106, AST 23, ALT 17, and alk phos 86. INR was 1.5. Chest x-ray: Poor inspiration with mild basilar atelectasis. IMPRESSION: 1. Leukocytosis. 2. Acute kidney injury. 3. Lactic acidosis. 4. Hypotension, currently on Levophed. 5. Atrial fibrillation. 6. He is a very poor historian. RECOMMENDATIONS: For now, we will continue Zosytg did dose daptomycin on the that should last until the . We will follow up labs and cultures. Labs are not obtained as of yet today, it is a difficult stick. We will dose micafungin as he has a risk for yeast. Await the paracentesis. He is critically ill. I spent 35 minutes of critical care time, did review Chava Lucas notes. Thank you for allowing me to participate in this patient's care. If you have any questions, please do not hesitate to contact me. JAMEY NICOLAS MD DR: KENDRA/lauryn JOB#: [id number] / [id number]
[2020-02-27] MEDS ORDERED: LIDOCAINE WITH 8.4% SOD BICARB 3 ML DISP.SYRIN. INJ ONE (10:45)
--- NOTE | 2020-02-27 11:46 | RAD ---
EXAM: CHEST ONE VIEW. HISTORY: Central line placement. COMPARISON: 02/26/2020. FINDINGS: A frontal view of the chest is obtained. A right internal jugular hemodialysis catheter and a right internal jugular central venous catheter has their tips in the superior cavoatrial junction. The inspiration is small with bibasilar atelectasis. There is no pneumothorax or clear pleural effusion. The heart is not enlarged. IMPRESSION: 1. Small inspiration with bibasilar atelectasis. Electronically signed by: Barbara Paul MD (02/27/2020 11:43 AM) [id number]
[2020-02-27] MEDS ORDERED: IV NORMAL SALINE 1000ML BAG 1,000 ML IV PRN ×2 (11:52)
--- NOTE | 2020-02-27 11:56 | RAD ---
Ultrasound-guided paracentesis 02/27/2020 9:52 AM Procedure: The risks and benefits of the procedure were discussed the patient. Informed consent was obtained. A timeout procedure was performed. Sonographic evaluation of the abdomen was performed demonstrating ascites . The right lower quadrant was prepped and draped using maximum sterile barrier technique. 1% lidocaine without epinephrine was administered for local anesthesia. Real-time ultrasonographic guidance was used in passing a 5 Bulgarian Yueh catheter into the fluid collection. 5.5 L of serous ascites was removed. The catheter was removed and pressure held to achieve hemostasis. A sterile dressing was applied. Impression: Successful ultrasound-guided paracentesis
--- NOTE | 2020-02-27 11:58 | RAD ---
Procedure: 1.Ultrasound-guided placement of right internal jugular triple-lumen central venous catheter 2. placement of a right internal jugular temporary dialysis catheter Clinical Indication: Renal failure, patient septic in the ICU, hypotensive on pressors Discussion: The risks and benefits of the procedure were discussed the patient and/or their sales representative consultant. Informed consent was obtained. A timeout procedure was performed. All elements of maximal sterile barrier technique including the use of a cap, mask, sterile gown, sterile gloves, large sterile sheet, appropriate hand hygiene, and 2% chlorhexidine for cutaneous antisepsis (or acceptable alternative antiseptic per current guidelines) were followed for this procedure. The right neck and chest were prepped using sterile barrier technique. Ultrasound interrogation of the right neck revealed patency and compressibility of the right internal jugular vein. A 21-gauge micropuncture was then used to gain access to this vein under ultrasound guidance. A hard copy ultrasound image was recorded. A guidewire was advanced centrally. 5 Syriac sheath was placed. Over a wire following dilatation, a triple-lumen central venous catheter was advanced centrally. Catheter was found to flush and aspirate normally. This process was repeated in an essentially identical fashion, slightly more inferior within the right internal jugular vein, with the exception that over the wire, following dilatation, dual-lumen temporary dialysis catheter was placed. The catheter was found to flush and aspirate normally. Follow-up chest radiograph demonstrates both catheters to be appropriately positioned. Catheters were secured in place and sterile dressings were applied.. No immediate complications were identified. Impression: 1. Placement of a right internal jugular triple-lumen central venous catheter 2. Placement of a separate right internal jugular dual-lumen temporary dialysis catheter
[2020-02-27] MEDS ORDERED: DIALYSIS PATIENT. MC PRN ×2 (12:00)
[2020-02-27] MEDS ORDERED: ALBUMIN HUMAN 25% 200 ML IV PRN (12:00)
--- NOTE | 2020-02-27 13:08 | NUR ---
SS following for discharge planning. SS reviewed pt chart and discussed with pt RN. Pt is LTC resident from [place], ; fax [phone]. Pt is currently on room air. Pt on IV Zosyn and Micafungin. COVID19 test pending. Per RN, pt had paracentesis and had 5 1/2 liters removed. Pt has central line and HD cath placed and is starting HD. Pt on drips for blood pressure. SS will continue to follow for discharge planning.
--- NOTE | 2020-02-27 13:09 | PN ---
DATE: 02/27/2020 SUBJECTIVE: The patient was admitted yesterday with generalized weakness, hypotension, acute kidney injury with severe metabolic acidosis and lactic acidosis. He received about 2 liters of normal saline while at the Emergency Room and was started on a bicarbonate drip and was seen in consultation by the skin care instructor, Infectious Disease as well as the health safety manager. He was started on IV antibiotic in the form of Zosyn and daptomycin and we made arrangements for paracentesis to rule out the possibility of spontaneous bacterial peritonitis. He has acute kidney injury, likely multifactorial including marked fluid shift after about drainage of about 26 liters and also continued to be on diuretics in the form of Lasix and spironolactone as well as Inderal and lactulose. We will arrange for him to have a central line. We have consulted the health safety manager and likelihood, he will require hemodialysis. When I saw him this morning, he was resting slightly propped up in bed, in no apparent respiratory distress. He was awake, alert. In fact, he denied any complaint, in particular denied any nausea, vomiting, diarrhea or constipation. Denied any hematemesis, melena, or hematochezia. He denied any chills, rigors, or fever. Denied any abdominal pain. PHYSICAL EXAMINATION: GENERAL: When I saw him, he looked well and was clearly showed no pallor, jaundice, cyanosis, or thyromegaly. No jugular venous distension. Mild bilateral lower limb edema. VITAL SIGNS: His heart rate was 58, blood pressure was 92/43, temperature was 98.2, respiratory rate was 24, and oxygen saturation was 99%. HEENT: Examination of head, eyes, ears, nose, and throat showed normocephalic, atraumatic. NECK: Supple. HEART: Showed normal first and second heart sounds. No gallop, rub or murmur. CHEST: Clear to auscultation. No crepitation or rhonchi. ABDOMEN: Markedly distended, soft with positive shifting dullness. There is no tenderness. No guarding or rigidity. No organomegaly. All hernial orifice intact. Bowel sounds normal. NEUROLOGIC: He was actually awake, alert, responding appropriately ____. He moves his extremities without difficulty. His intake over the last 24 hours was incompletely recorded. He has no output. Today's labs are still pending. ASSESSMENT: 1. 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 His ammonia was up to 170 and he was treated with lactulose ____. His ammonia was only 30. 2. Has acute kidney injury, likely multifactorial. 3. Lactic acidosis, likely due to hypoperfusion, sepsis is a possibility, so we did consult Infectious Disease and he is on Zosyn, daptomycin as well as anidulafungin. He has other medical problems include hypertension; however, the patient is hypotensive. He has also paroxysmal atrial fibrillation, obstructive sleep apnea, and history of hepatitis A. PLAN: Plan is to continue to hold all his medication, in particular, his Lasix, spironolactone, and metformin. We will hold his propranolol as well as lactulose for now. Continue with Protonix. We will monitor his blood sugar and start him on insulin sliding scale. We have consulted the interventional radiologist for placement of. DICTATION ENDS HERE. JORGE LUIS CARLTON MD DR: ZACK/lauryn JOB#: [id number] / [id number]
[2020-02-27 13:15] LABS: BF CLARITY HAZY; BF COLOR YELLOW; BF MON % 11 %; BF PMN % 89 %; BF RBC COUNT 2042 /cmm (Not Established); BF SOURCE ASCITES; BF WBC COUNT 2265 /cmm (Not Established)
--- NOTE | 2020-02-27 13:43 | PDOC ---
Date of Service: DATE: 02/27/20 TIME: 13:35 Objective: Objective: D/w nurse: ROCIO says that Dr. Najera has requested to be consulted so he can come see the patient. Had central line and dialysis cath placed, to dialyze later. Remains somewhat confused, COVID pending. Vital Signs: Vital Signs Date Time Temp Pulse Resp B/P (MAP) Pulse Ox O2 Delivery O2 Flow Rate FiO2 02/27/20 12:00 98.3 50 17 74/49 (57) 92 Room Air 98.3 Labs: Laboratory Tests Test 02/26/20 13:50 02/26/20 20:00 02/27/20 08:40 02/27/20 09:25 O2 Saturation 97 % 97 % Arterial Blood pH 7.13 7.17 Arterial Blood pCO2 at Patient Temp 16 mmHg 16 mmHg Arterial Blood pO2 at Patient Temp 107 mmHg 98 mmHg Arterial Blood HCO3 5 mmol/L 6 mmol/L Arterial Blood Base Excess -22 mmol/L -20 mmol/L FiO2 21 21 Lactic Acid Level 11.7 mmol/L 12.8 mmol/L White Blood Count 12.5 x10^3/uL Red Blood Count 4.85 x10^6/uL Hemoglobin 15.1 g/dL Hematocrit 47.4 % Mean Corpuscular Volume 98 fL Mean Corpuscular Hemoglobin 31 pg Mean Corpuscular Hemoglobin Concent 32 g/dL Red Cell Distribution Width 19.3 % Platelet Count 163 x10^3/uL Neutrophils (%) (Auto) 85 % Lymphocytes (%) (Auto) 3 % Monocytes (%) (Auto) 10 % Eosinophils (%) (Auto) 2 % Basophils (%) (Auto) 0 % Neutrophils # (Auto) 10.6 x10^3/uL Lymphocytes # (Auto) 0.4 x10^3/uL Monocytes # (Auto) 1.3 x10^3/uL Eosinophils # (Auto) 0.2 x10^3/uL Basophils # (Auto) 0.0 x10^3/uL Sodium Level 128 mmol/L Potassium Level 4.9 mmol/L Chloride Level 92 mmol/L Carbon Dioxide Level 10 mmol/L Anion Gap 26 Blood Urea Nitrogen 106 mg/dL Creatinine 6.0 mg/dL Estimated GFR (Cockcroft-Gault) 9.4 BUN/Creatinine Ratio 18 Glucose Level 231 mg/dL Calcium Level 8.2 mg/dL Total Bilirubin 1.6 mg/dL Aspartate Amino Transf (AST/SGOT) 34 U/L Alanine Aminotransferase (ALT/SGPT) 19 U/L Alkaline Phosphatase 83 U/L Total Protein 7.3 g/dL Albumin 2.4 g/dL Albumin/Globulin Ratio 0.5 Test 02/27/20 10:45 Body Fluid Source Ascites Body Fluid Color Yellow Body Fluid Clarity Hazy Body Fluid Nucleated Cells 2265 /cmm Body Fluid Mononuclear WBCs (%) 11 % Body Fluid Polymorphonuclear Cells 89 % Body Fluid Total RBCs Counted 2042 /cmm BLOOD CULTURE Final GRAM NEGATIVE RODS, IN 2 OF 2 BOTTLES, ONE SET DRAWN. Imaging: IR procedure Impression: 1. Placement of a right internal jugular triple-lumen central venous catheter 2. Placement of a separate right internal jugular dual-lumen temporary dialysis catheter. CXR IMPRESSION: 1. Small inspiration with bibasilar atelectasis. Paracentesis 5.5 L of serous ascites was removed. PE: GEN: in COVID isolation LUNGS: clear, room air HEART: bradycardic ABD: large but less distended today NEURO/PSYCH: resting A/P: GNR bacteremia, hypotension, lactic acidosis, ANSON H/o cirrhosis/SHELBY, esophageal varices s/p banding w/ Dr. Najera, recurrent a scites/paracentesis R/o COVID-19 -- COVID pending. Await fluid studies. Justicifation of Admission Dx: Justifications for Admission: Justification of Admission Dx: Yes Acute Renal Failure: 3-Fold Rise in Serum Crea KRYS CLARK Feb 27, 2020 13:43
[2020-02-27] MEDS: NOREPINEPHRINE VIAL 32 MG in IV D5W 250ML IV PRN (14:37)
[2020-02-27] MEDS: LACTOBACILLUS RHAMNOSUS GG 1 CAPSULE. PO SCH (21:27)
[2020-02-28] VITALS (24 sets, daily range): BP systolic 70–110; BP diastolic 41–67
[2020-02-28] MEDS: SODIUM BICARBONATE VIAL 150 MEQ in IV DEXTROSE 5% 1,000 ML IV SCH ×3 (00:44→18:20)
[2020-02-28] MEDS: NOREPINEPHRINE VIAL 32 MG in IV D5W 250ML IV PRN ×3 (00:45→22:45)
[2020-02-28] MEDS: PIPERACILLIN/TAZOBACTAM 2.25 GM in IV NORMAL SALINE 50ML 50 ML IV SCH ×3 (05:50→22:44)
[2020-02-28 07:23] LABS: PROTHROMBIN TIME PATIENT 22.6 SEC (11.7-14.0)
--- NOTE | 2020-02-28 07:25 | RAD ---
INDICATION : Reason: h/o cirrhosis, eval liver/COVID PENDING / Spl. Instructions: / History: COMPARISON: None TECHNIQUE: Multiple ultrasound images obtained through the abdomen in grayscale and color. FINDINGS: Liver: Nodular appearance of the liver which appears echogenic. Gallbladder: Not well seen. IVC: Partially distended at level of liver. Common Bile Duct: Not dilated. Pancreas: Obscured by bowel gas. Free fluid is seen within the abdomen. Right Kidney: No hydronephrosis. IMPRESSION: * The liver has a heterogenous echogenic appearance with nodularity. This can be seen with cirrhosis. Although a definitive mass is not seen this is a limited examination with portions of the liver not well evaluated. * Free fluid is seen. * Limited visualization of the gallbladder. There is a partially visualized structure in the right upper quadrant of the abdomen which could be secondary to a partially contracted gallbladder with wall thickening however it is not seen well enough to adequately evaluate. Electronically signed by: Masood Parker MD (02/28/2020 7:21 AM) [id number]
[2020-02-28 07:28] LABS: BASO # 0.1 x10^3/uL (0.0-0.2); BASO % 0 % (0-3); EOS % 0 % (0-3); LYMPH # 0.4 x10^3/uL (1.0-4.8); LYMPH % 2 % (24-48); MEAN CORPUSCULAR HEMOGLOBIN 31 pg (25-35); MEAN CORPUSCULAR HGB CONC 33 g/dL (31-37); MEAN CORPUSCULAR VOLUME 92 fL (79-100); MONO # 0.9 x10^3/uL (0.0-1.1); MONO % 5 % (0-9); NEUT # 15.6 x10^3/uL (1.8-7.7); NEUT % 92 % (31-73); PLATELET COUNT 80 x10^3/uL (140-400); RED BLOOD COUNT 4.23 x10^6/uL (4.30-5.70); RED CELL DISTRIBUTION WIDTH 18.2 % (11.5-14.5); WHITE BLOOD COUNT 16.9 x10^3/uL (4.0-11.0)
[2020-02-28 07:51] LABS: ALBUMIN 2.6 g/dL (3.4-5.0); ALBUMIN/GLOBULIN RATIO 0.7 (1.0-1.7); CALCIUM 7.5 mg/dL (8.5-10.1); GFR 11.6; POTASSIUM 3.5 mmol/L (3.5-5.1); TOTAL BILIRUBIN 2.1 mg/dL (0.2-1.0); TOTAL PROTEIN 6.1 g/dL (6.4-8.2)
--- NOTE | 2020-02-28 07:57 | PDOC ---
Infectious Disease Note Subjective Subjective Doing ok. Has generalized aches. No F but occ chill. No Nausea/V/D/SOA/rash ROS ROS o/w neg Vital Sign Vital Signs Vital Signs Date Time Temp Pulse Resp B/P (MAP) Pulse Ox O2 Delivery O2 Flow Rate FiO2 02/28/20 07:29 59 16 91/45 (60) 99 Room Air 02/28/20 04:00 97.2 97.2 Physical Exam PHYSICAL EXAM CONSTITUTIONAL: He appears comfortable. He is in no acute distress. He is lying in bed. HEENT: He has normal conjunctivae. Oral cavity: Oropharynx was dry but clear. NECK: Supple. No fullness. LUNGS: Decreased in the bases. HEART: S1, S2. ABDOMEN: Large. He has ascites. There is no gross tenderness. He has firmness around the area in the left periumbilical area that is without redness, it is nontender, does not reduce. There is no bruising. There is no warmth. EXTREMITIES: No clubbing, cyanosis. He has got chronic lower extremity edema and changes.- some scabs SKIN: Warm to touch without generalized signs of rash. NEUROLOGIC: He answers questions, moves all extremities, but is confused. PSYCHIATRIC: Affect is pleasant. IV: RIJ and HD cath Labs Lab Laboratory Tests Test 02/27/20 08:40 02/27/20 09:25 02/27/20 10:45 02/27/20 11:45 O2 Saturation 97 % (92-99) Arterial Blood pH 7.17 (7.35-7.45) Arterial Blood pCO2 at Patient Temp 16 mmHg (35-46) Arterial Blood pO2 at Patient Temp 98 mmHg (65-108) Arterial Blood HCO3 6 mmol/L (21-28) Arterial Blood Base Excess -20 mmol/L (-3-3) FiO2 21 White Blood Count 12.5 x10^3/uL (4.0-11.0) Red Blood Count 4.85 x10^6/uL (4.30-5.70) Hemoglobin 15.1 g/dL (13.0-17.5) Hematocrit 47.4 % (39.0-53.0) Mean Corpuscular Volume 98 fL (79-100) Mean Corpuscular Hemoglobin 31 pg (25-35) Mean Corpuscular Hemoglobin Concent 32 g/dL (31-37) Red Cell Distribution Width 19.3 % (11.5-14.5) Platelet Count 163 x10^3/uL (140-400) Neutrophils (%) (Auto) 85 % (31-73) Lymphocytes (%) (Auto) 3 % (24-48) Monocytes (%) (Auto) 10 % (0-9) Eosinophils (%) (Auto) 2 % (0-3) Basophils (%) (Auto) 0 % (0-3) Neutrophils # (Auto) 10.6 x10^3/uL (1.8-7.7) Lymphocytes # (Auto) 0.4 x10^3/uL (1.0-4.8) Monocytes # (Auto) 1.3 x10^3/uL (0.0-1.1) Eosinophils # (Auto) 0.2 x10^3/uL (0.0-0.7) Basophils # (Auto) 0.0 x10^3/uL (0.0-0.2) Sodium Level 128 mmol/L (136-145) Potassium Level 4.9 mmol/L (3.5-5.1) Chloride Level 92 mmol/L (98-107) Carbon Dioxide Level 10 mmol/L (21-32) Anion Gap 26 (6-14) Blood Urea Nitrogen 106 mg/dL (8-26) Creatinine 6.0 mg/dL (0.7-1.3) Estimated GFR (Cockcroft-Gault) 9.4 BUN/Creatinine Ratio 18 (6-20) Glucose Level 231 mg/dL (70-99) Lactic Acid Level 12.8 mmol/L (0.4-2.0) Calcium Level 8.2 mg/dL (8.5-10.1) Total Bilirubin 1.6 mg/dL (0.2-1.0) Aspartate Amino Transf (AST/SGOT) 34 U/L (15-37) Alanine Aminotransferase (ALT/SGPT) 19 U/L (16-63) Alkaline Phosphatase 83 U/L (46-116) Total Protein 7.3 g/dL (6.4-8.2) Albumin 2.4 g/dL (3.4-5.0) Albumin/Globulin Ratio 0.5 (1.0-1.7) Body Fluid Source Ascites Body Fluid Color Yellow Body Fluid Clarity Hazy Body Fluid Nucleated Cells 2265 /cmm (Not Established) Body Fluid Mononuclear WBCs (%) 11 % Body Fluid Polymorphonuclear Cells 89 % Body Fluid Total RBCs Counted 2042 /cmm (Not Established) Hepatitis B Surface Antibody, Quant <3.1 mIU/mL (Immunity>9.9) Test 02/27/20 13:25 02/28/20 04:40 Lactic Acid Level 12.5 mmol/L (0.4-2.0) Prothrombin Time 22.6 SEC (11.7-14.0) Prothromb Time International Ratio 2.0 (0.8-1.1) Ammonia 50 mcmol/L (11-34) Micro GRAM STAIN Final Final NO ORGANISMS SEEN. SQUAMOUS EPI CELL:NOT APPLICABLE PMN (WBCs):MANY Unless otherwise specified, Testing Performed by: [address] [address] For Inquires, the Physician may contact the Microbiology department at [phone] Microbiology 02/27/20 Gram Stain - Final, Resulted 02/27/20 Aerobic and Anaerobic Culture, Resulted Pending 02/26/20 Blood Culture - Final, Complete Objective Assessment GNR sepsis - 02/25 ? Enteric - d/w Micro this am Leukocytosis - up ? reactive ANSON - started HD 02/26 Lactic acidosis Hypotension - On Levophed but decreasing Ascites s/p Paracentesis of 5.5 Liters 02/25 cult pending WBC 2265 on 02/26 Afib Very poor historian Plan Plan of Care Cont Zosyn Dose Cefepime times one D/c additional Daptomycin 02/[address] abd/pelvis no contrast F/u labs and cults Cont Micafungin for now as at risk for yeast D/w nursing JAMEY NICOLAS MD Feb 28, 2020 07:57
[2020-02-28] MEDS: LACTOBACILLUS RHAMNOSUS GG 1 CAPSULE. PO SCH ×3 (08:05→22:44)
[2020-02-28] MEDS: PANTOPRAZOLE 40 MG TABLET.DR. PO SCH (08:05)
[2020-02-28] MEDS: rifAXIMin 550 MG TABLET PO SCH ×3 (08:06→22:43)
[2020-02-28] MEDS: MICAFUNGIN 100 MG in IV DEXTROSE 5% 100ML 100 ML IV SCH (08:07)
--- NOTE | 2020-02-28 08:59 | PDOC ---
DATE OF SERVICE DATE: 02/28/20 TIME: 08:59 SUBJECTIVE ROS Somewhat confused, lethargic OBJECTIVE Vital Signs Vital Signs Date Time Temp Pulse Resp B/P (MAP) Pulse Ox O2 Delivery O2 Flow Rate FiO2 02/28/20 08:03 62 20 99/55 (70) 100 Room Air 02/28/20 07:29 97.5 97.5 I & 0 Intake and Output 02/28/20 07:00 Intake Total 4199 ml Output Total 2 ml Balance 4197 ml Intake Oral 120 ml IV Total 4079 ml Output Urine Total 2 ml # Bowel Movements 2 PHYSICAL EXAM Physical Exam GENERAL no acute distress , lying in bed. HEENT: Oropharynx dry NECK: Supple. LUNGS: Decreased in the bases, non labored HEART: S1, S2. ABDOMEN: Distended , ascites + ,left periumbilical area EXTREMITIES: No clubbing, cyanosis. chronic lower extremity edema SKIN: No rash. NEUROLOGIC: Awake,,answers questions, moves all extremities, lethargic, Mildly confused . 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 Access- Temp HDC Supportive care, avoid nephrotoxins, UA (Not done, anuric), Obstuctive etiology less likely , Rt Kidney No Hydronephrosis , Lt Kidney and bladder Not evaluated- Renal US ordered Metabolic acidosis- severe - Multifactorial , Has been on Metformin as well Initiated on HD 02/26, Dialysis again today with 40 Bicarb HypoNatremia - suspect 2/2 Cirrhosis Nonalcoholic steatohepatitis with liver cirrhosis,, portal hypertension,esophageal varices Ammonia is rising , already on rifaximin 550 mg twice a day Recurrent ascites that required multiple paracentesis- most recent 7-10 days ago with removal of 26 liters of fluid Received 25% albumin x 4; He was also on Lasix and Aldactone S/P Paracentesis on 02/26- 5 07/12 Lts fluid drained CKD stage 2/3 - Baseline Cr 1.2 and BUN 35 on 02/18 DM- On metformin prior to Hospitalization Leukocytosis/ lactic Acidosis -Sepsis with growth of Gram-negative rods Hypertension- currently Hypotensive and on Levophed. Hx of Paroxysmal Atrial fibrillation. H/o right colectomy CoViD PUI (Negative on January 08) Discussed with RN COMMENT/RELEVANT DATA Meds Current Medications Medications (Trade) Dose Ordered Sig/Karley Start Time Stop Time Status Last Admin Dose Admin Albumin Human 200 ml @ 200 mls/hr 1X PRN PRN 02/27/20 12:00 02/27/20 17:59 DC 02/27/20 14:59 200 MLS/HR Daptomycin 500 mg/ Sodium Chloride 50 ml @ 100 mls/hr 1X ONCE 02/26/20 18:00 02/26/20 18:29 DC 02/26/20 17:34 100 MLS/HR Dextrose (Dextrose 50%-Water Syringe) 12.5 gm PRN Q15MIN PRN 02/28/20 09:00 Info (PHARMACY MONITORING -- do not chart) 1 each PRN DAILY PRN 02/27/20 12:00 Insulin Human Lispro (HumaLOG) 0-5 UNITS TIDWMEALS 02/28/20 12:00 Lactobacillus Rhamnosus (Culturelle) 1 cap BID 02/27/20 21:00 02/28/20 08:05 1 CAP Lidocaine HCl (Buffered Lidocaine 1%) 4 ml 1X ONCE 02/27/20 10:45 02/27/20 10:46 DC 02/27/20 10:46 4 ML Micafungin Sodium 100 mg/Dextrose 100 ml @ 100 mls/hr Q24H 02/27/20 09:00 02/28/20 08:07 100 MLS/HR Norepinephrine Bitartrate 32 mg/ Dextrose 250 ml @ 17.5 mls/hr CONT PRN 02/27/20 13:30 02/28/20 00:45 20.906 MLS/HR Norepinephrine Bitartrate 8 mg/ Dextrose 258 ml @ 24.188 mls/ hr CONT PRN 02/26/20 16:30 02/27/20 14:00 DC 02/27/20 10:55 67.8 MLS/HR Ondansetron HCl (Zofran) 4 mg PRN Q8HRS PRN 02/26/20 14:45 02/27/20 14:44 DC Pantoprazole Sodium (Protonix) 40 mg DAILYAC 02/27/20 07:30 8/19/20 08:05 40 MG Pharmacy Consult (C.diff Med Screen By Rx) 1 each 1X ONCE 02/26/20 16:45 02/26/20 16:46 Cancel Piperacillin Sod/ Tazobactam Sod (Zosyn Per Pharmacy) 1 each PRN DAILY PRN 02/26/20 16:45 Piperacillin Sod/ Tazobactam Sod 2.25 gm/Sodium Chloride 50 ml @ 100 mls/hr Q8HRS 02/26/20 17:00 02/28/20 05:50 100 MLS/HR Piperacillin Sod/ Tazobactam Sod 3.375 gm/Sodium Chloride 50 ml @ 100 mls/hr 1X ONCE 02/26/20 14:45 02/26/20 15:14 DC 02/26/20 14:59 100 MLS/HR Rifaximin (Xifaxan) 550 mg Q12HR 02/26/20 21:00 02/28/20 08:06 550 MG Sodium Bicarbonate 150 meq/Dextrose 1,150 ml @ 150 mls/hr Q7H40M 02/26/20 17:30 02/28/20 00:44 150 MLS/HR Sodium Bicarbonate (Sodium Bicarb Adult 8.4% Syr) 50 meq 1X ONCE 02/26/20 14:15 02/26/20 14:16 DC 02/26/20 14:14 50 MEQ Sodium Chloride 1,000 ml @ 400 mls/hr Q2H30M PRN 02/27/20 11:52 02/27/20 23:51 DC Lab Laboratory Tests Test 02/27/20 09:25 02/27/20 10:45 02/27/20 11:45 02/27/20 13:25 White Blood Count 12.5 x10^3/uL (4.0-11.0) Red Blood Count 4.85 x10^6/uL (4.30-5.70) Hemoglobin 15.1 g/dL (13.0-17.5) Hematocrit 47.4 % (39.0-53.0) Mean Corpuscular Volume 98 fL (79-100) Mean Corpuscular Hemoglobin 31 pg (25-35) Mean Corpuscular Hemoglobin Concent 32 g/dL (31-37) Red Cell Distribution Width 19.3 % (11.5-14.5) Platelet Count 163 x10^3/uL (140-400) Neutrophils (%) (Auto) 85 % (31-73) Lymphocytes (%) (Auto) 3 % (24-48) Monocytes (%) (Auto) 10 % (0-9) Eosinophils (%) (Auto) 2 % (0-3) Basophils (%) (Auto) 0 % (0-3) Neutrophils # (Auto) 10.6 x10^3/uL (1.8-7.7) Lymphocytes # (Auto) 0.4 x10^3/uL (1.0-4.8) Monocytes # (Auto) 1.3 x10^3/uL (0.0-1.1) Eosinophils # (Auto) 0.2 x10^3/uL (0.0-0.7) Basophils # (Auto) 0.0 x10^3/uL (0.0-0.2) Sodium Level 128 mmol/L (136-145) Potassium Level 4.9 mmol/L (3.5-5.1) Chloride Level 92 mmol/L (98-107) Carbon Dioxide Level 10 mmol/L (21-32) Anion Gap 26 (6-14) Blood Urea Nitrogen 106 mg/dL (8-26) Creatinine 6.0 mg/dL (0.7-1.3) Estimated GFR (Cockcroft-Gault) 9.4 BUN/Creatinine Ratio 18 (6-20) Glucose Level 231 mg/dL (70-99) Lactic Acid Level 12.8 mmol/L (0.4-2.0) 12.5 mmol/L (0.4-2.0) Calcium Level 8.2 mg/dL (8.5-10.1) Total Bilirubin 1.6 mg/dL (0.2-1.0) Aspartate Amino Transf (AST/SGOT) 34 U/L (15-37) Alanine Aminotransferase (ALT/SGPT) 19 U/L (16-63) Alkaline Phosphatase 83 U/L (46-116) Total Protein 7.3 g/dL (6.4-8.2) Albumin 2.4 g/dL (3.4-5.0) Albumin/Globulin Ratio 0.5 (1.0-1.7) Body Fluid Source Ascites Body Fluid Color Yellow Body Fluid Clarity Hazy Body Fluid Nucleated Cells 2265 /cmm (Not Established) Body Fluid Mononuclear WBCs (%) 11 % Body Fluid Polymorphonuclear Cells 89 % Body Fluid Total RBCs Counted 2042 /cmm (Not Established) Hepatitis B Surface Antibody, Quant <3.1 mIU/mL (Immunity>9.9) Test 02/28/20 04:40 White Blood Count 16.9 x10^3/uL (4.0-11.0) Red Blood Count 4.23 x10^6/uL (4.30-5.70) Hemoglobin 13.0 g/dL (13.0-17.5) Hematocrit 39.0 % (39.0-53.0) Mean Corpuscular Volume 92 fL (79-100) Mean Corpuscular Hemoglobin 31 pg (25-35) Mean Corpuscular Hemoglobin Concent 33 g/dL (31-37) Red Cell Distribution Width 18.2 % (11.5-14.5) Platelet Count 80 x10^3/uL (140-400) Neutrophils (%) (Auto) 92 % (31-73) Lymphocytes (%) (Auto) 2 % (24-48) Monocytes (%) (Auto) 5 % (0-9) Eosinophils (%) (Auto) 0 % (0-3) Basophils (%) (Auto) 0 % (0-3) Neutrophils # (Auto) 15.6 x10^3/uL (1.8-7.7) Lymphocytes # (Auto) 0.4 x10^3/uL (1.0-4.8) Monocytes # (Auto) 0.9 x10^3/uL (0.0-1.1) Eosinophils # (Auto) 0.0 x10^3/uL (0.0-0.7) Basophils # (Auto) 0.1 x10^3/uL (0.0-0.2) Prothrombin Time 22.6 SEC (11.7-14.0) Prothromb Time International Ratio 2.0 (0.8-1.1) Sodium Level 133 mmol/L (136-145) Potassium Level 3.5 mmol/L (3.5-5.1) Chloride Level 90 mmol/L (98-107) Carbon Dioxide Level 15 mmol/L (21-32) Anion Gap 28 (6-14) Blood Urea Nitrogen 81 mg/dL (8-26) Creatinine 5.0 mg/dL (0.7-1.3) Estimated GFR (Cockcroft-Gault) 11.6 BUN/Creatinine Ratio 16 (6-20) Glucose Level 150 mg/dL (70-99) Calcium Level 7.5 mg/dL (8.5-10.1) Total Bilirubin 2.1 mg/dL (0.2-1.0) Aspartate Amino Transf (AST/SGOT) 155 U/L (15-37) Alanine Aminotransferase (ALT/SGPT) 40 U/L (16-63) Alkaline Phosphatase 65 U/L (46-116) Ammonia 50 mcmol/L (11-34) Total Protein 6.1 g/dL (6.4-8.2) Albumin 2.6 g/dL (3.4-5.0) Albumin/Globulin Ratio 0.7 (1.0-1.7) Results All relevant outside records, renal labs, imaging studies, telemetry/EKG's were reviewed. Justicifation of Admission Dx: Justifications for Admission: Justification of Admission Dx: Yes Acute Renal Failure: 3-Fold Rise in Serum ANATOLY Louis MD Feb 28, 2020 08:59
[2020-02-28] MEDS ORDERED: DEXTROSE 50% 25 GM / 50ML DISP.SYRIN. IV PRN (09:00)
[2020-02-28 09:19] LABS: BASE EXCESS ABG -11 mmol/L (-3-3); HCO3 ABG 11 mmol/L (21-28); PO2 ABG 72 mmHg (65-108); SAT O2 ABG 94 % (92-99)
[2020-02-28 09:22] LABS: PCO2 ABG 17 mmHg (35-46)
--- NOTE | 2020-02-28 09:33 | PDOC ---
Date of Service: DATE: 02/28/20 TIME: 09:28 Objective: Objective: D/w Dr. Julian CHAN has requested he call Dr. Najera. Per nurse - to check swallow, then restart lactulose if cleared. Asking about lump in left abdomen. Vital Signs: Vital Signs Date Time Temp Pulse Resp B/P (MAP) Pulse Ox O2 Delivery O2 Flow Rate FiO2 02/28/20 08:03 62 20 99/55 (70) 100 Room Air 02/28/20 07:29 97.5 97.5 Labs: Laboratory Tests Test 02/27/20 10:45 02/27/20 11:45 02/27/20 13:25 02/28/20 04:40 Body Fluid Source Ascites Body Fluid Color Yellow Body Fluid Clarity Hazy Body Fluid Nucleated Cells 2265 /cmm Body Fluid Mononuclear WBCs (%) 11 % Body Fluid Polymorphonuclear Cells 89 % Body Fluid Total RBCs Counted 2042 /cmm Hepatitis B Surface Antibody, Quant <3.1 mIU/mL Lactic Acid Level 12.5 mmol/L White Blood Count 16.9 x10^3/uL Red Blood Count 4.23 x10^6/uL Hemoglobin 13.0 g/dL Hematocrit 39.0 % Mean Corpuscular Volume 92 fL Mean Corpuscular Hemoglobin 31 pg Mean Corpuscular Hemoglobin Concent 33 g/dL Red Cell Distribution Width 18.2 % Platelet Count 80 x10^3/uL Neutrophils (%) (Auto) 92 % Lymphocytes (%) (Auto) 2 % Monocytes (%) (Auto) 5 % Eosinophils (%) (Auto) 0 % Basophils (%) (Auto) 0 % Neutrophils # (Auto) 15.6 x10^3/uL Lymphocytes # (Auto) 0.4 x10^3/uL Monocytes # (Auto) 0.9 x10^3/uL Eosinophils # (Auto) 0.0 x10^3/uL Basophils # (Auto) 0.1 x10^3/uL Prothrombin Time 22.6 SEC Prothromb Time International Ratio 2.0 Sodium Level 133 mmol/L Potassium Level 3.5 mmol/L Chloride Level 90 mmol/L Carbon Dioxide Level 15 mmol/L Anion Gap 28 Blood Urea Nitrogen 81 mg/dL Creatinine 5.0 mg/dL Estimated GFR (Cockcroft-Gault) 11.6 BUN/Creatinine Ratio 16 Glucose Level 150 mg/dL Calcium Level 7.5 mg/dL Total Bilirubin 2.1 mg/dL Aspartate Amino Transf (AST/SGOT) 155 U/L Alanine Aminotransferase (ALT/SGPT) 40 U/L Alkaline Phosphatase 65 U/L Ammonia 50 mcmol/L Total Protein 6.1 g/dL Albumin 2.6 g/dL Albumin/Globulin Ratio 0.7 Test 02/28/20 09:10 O2 Saturation 94 % Arterial Blood pH 7.41 Arterial Blood pCO2 at Patient Temp 17 mmHg Arterial Blood pO2 at Patient Temp 72 mmHg Arterial Blood HCO3 11 mmol/L Arterial Blood Base Excess -11 mmol/L GRAM STAIN Final Final NO ORGANISMS SEEN. SQUAMOUS EPI CELL:NOT APPLICABLE PMN (WBCs):MANY Unless otherwise specified, Testing Performed by: [address] [address] For Inquires, the Physician may contact the Microbiology department at [phone] ANAEROBIC-AEROBIC CULTURE PENDING PE: GEN: NAD LUNGS: CTAB HEART: RRR ABD: large, non-tender, superficial round hard area left umbilical region (noted on initial exam as well) NEURO/PSYCH: confused A/P: GNR bacteremia, hypotension, lactic acidosis, leukocytosis, ANSON H/o cirrhosis/SHELBY, esophageal varices s/p banding, recurrent ascites/paracentesis, hepatic encephalopathy COVID negative -- Could consider CT w/o contrast re: round firm area in left abdomen - seems superficial. Other plans as above. Justicifation of Admission Dx: Justifications for Admission: Justification of Admission Dx: Yes Acute Renal Failure: 3-Fold Rise in Serum Crea KRYS CLARK Feb 28, 2020 09:33
--- NOTE | 2020-02-28 09:50 | PN ---
DATE: TO WHOM IT MAY CONCERN The patient is currently in the ICU of [facility]. He is critically ill. He has advanced liver disease with acute kidney failure as well as severe sepsis. He is very lethargic and is unable to make any decision about saying about his financial and will not be able to manage his finance and he is unable to manage his finance and this letter was issued so that his DPOA, Mr. Montez Mandel, can pay his outstanding bills and anything else that he is authorized to do. If you have any questions or concerns, please do not hesitate to contact me at [phone]. JORGE LUIS CARLTON MD DR: ZACK/lauryn JOB#: [id number] / [id number]
--- NOTE | 2020-02-28 09:54 | PN ---
DATE: 02/28/2020 SUBJECTIVE: The patient is resting, slightly propped up in bed, in no apparent respiratory distress. He is lethargic, but arousable. Did complain of some abdominal pain. Denied any shortness of breath. Nursing staff stated that he continued to have hypertensive requiring Levophed. He was dialyzed yesterday and about 5-1/2 liters of fluid were taken off. PHYSICAL EXAMINATION: GENERAL: When I saw him this morning, he was pale, but not jaundiced, cyanosis or thyromegaly. No jugular venous distention, generalized anasarca. VITAL SIGNS: His heart rate was 59, blood pressure was 99/55, temperature was 97.5, respiratory rate was 20, and oxygen saturation was 100% on room air. HEAD, EYES, EARS, NOSE AND THROAT: Showed normocephalic, atraumatic. NECK: Supple. HEART: Normal first and second heart sounds. No gallop or murmur. CHEST: Showed central trachea, equal bilateral expansion, air entry, vesicular sounds. No crepitation or rhonchi. ABDOMEN: Markedly distended, diffusely tender. There is no guarding or rigidity. No organomegaly. He has a hernia in the periumbilical area, but somewhat tender. NEUROLOGIC: He is lethargic, but arousable. He moves his upper extremities to much good extent to the lower extremities. His intake was 6690. No urine output; however, he was about ____ mL of fluid was ultrafiltrated on hemodialysis. LABORATORY DATA: His lab work this morning showed a white cell count of 16,900, hemoglobin 13, hematocrit 39, MCV 92, and platelet count of 80,000. His chemistry showed a serum sodium 133, potassium 3.5, chloride 90, bicarbonate 15, anion gap of 28, a BUN of 81, creatinine 5, estimated GFR was 11.6. His glucose was 150, calcium was 7.1. Total bilirubin was 2.1. AST, ALT, alkaline phosphatase were normal. Ammonia was 50. His total protein was 6.1, albumin was 2.6. His prothrombin time is 22.6, INR of 2. His hepatitis B surface antibody positive. His coronavirus by PCR was not detected. His ascitic fluid showed the fluid was yellow, hazy with total nucleated cells of 2265, which is 89% polymorphonuclear cells. ASSESSMENT: Sepsis with growth of Gram-negative rods acute kidney injury, on hemodialysis and lactic acidosis, hypotension on Levophed. He has massive ascites for which he underwent paracentesis and about 5-1/2 liters of fluid were removed. Culture pending. His white cell count in ascitic fluid was 2265, of which 89% were polymorphs. The patient is known to have hypertension, atrial fibrillation, and type 2 diabetes. PLAN: To continue with hemodialysis. Continue with IV antibiotic. His ammonia is rising. He has already now on rifaximin 550 mg twice a day, the normal range of ammonia in our lab is between 11-34 micromole per liter. I will consult speech therapist and if he is safe to eat and drink, we will start him on lactulose and also 1800 ADA diet. JORGE LUIS CARLTON MD DR: ZACK/lauryn JOB#: [id number] / [id number]
[2020-02-28] MEDS ORDERED: CEFEPIME HCL IV Push 1 GM VIAL. IVP ONE (10:15)
[2020-02-28] MEDS ORDERED: diphenhydrAMINE 50 MG/ML VIAL IV PRN ×2 (11:30)
[2020-02-28] MEDS ORDERED: ACETAMINOPHEN 500 MG TABLET PO PRN (11:30)
[2020-02-28] MEDS ORDERED: 0.9 % SODIUM CHLORIDE 10 ML DISP.SYRIN. IV PRN ×2 (11:30)
[2020-02-28] MEDS ORDERED: ALBUMIN HUMAN 25% 200 ML IV PRN (11:30)
[2020-02-28] MEDS ORDERED: IV NORMAL SALINE 1000ML BAG 1,000 ML IV PRN ×2 (11:30)
[2020-02-28] MEDS ORDERED: DIALYSIS PATIENT. MC PRN (11:30)
[2020-02-28] MEDS: INSULIN LISPRO 300 UNITS/3 ML VIAL. SQ SCH ×2 (12:00→16:38)
--- NOTE | 2020-02-28 12:00 | RAD ---
Examination: Ultrasound kidneys HISTORY: History of acute renal insufficiency COMPARISON: None available Findings/ impression: Limited examination due to patient body habitus and due to ascites. The left kidney measures 10.3 x 4.8 x 5.2 cm. The right kidney could not be visualized. Henning catheter identified in the urinary bladder. Large ascites. Electronically signed by: Aj Gómez MD (02/28/2020 11:57 AM) [id number]
--- NOTE | 2020-02-28 13:34 | RAD ---
EXAM: CT ABDOMEN/PELVIS WITHOUT CONTRAST. HISTORY: Abdominal pain, ventral hernia. TECHNIQUE: Computed tomography of the abdomen and pelvis was performed without intravenous contrast. One or more of the following individualized dose reduction techniques were utilized for this examination: 1. Automated exposure control. 2. Adjustment of the mA and/or kV according to patient size. 3. Use of iterative reconstruction technique. COMPARISON: None. FINDINGS: Lung windows through the visualized portions of the bases reveal a trace left pleural effusion. There is mild basilar atelectasis. A catheter tip is noted in the right superior cavoatrial junction. Bone windows reveal no suspicious lesions. The liver is shrunken and nodular consistent with advanced cirrhotic change. There is a large amount of ascites throughout the abdomen. A fluid collection within the subcutaneous compartment of the left lower quadrant measures 6.5 x 2.6 cm. No clear abdominal wall defect is detectable, though a tiny defect cannot be excluded. The septated collection appears to be along the lateral aspect of a lower anterior abdominal wall scar. No bowel loops are included. The pancreas, adrenal glands, gallbladder, spleen and kidneys are unremarkable. There are no pathologically enlarged lymph nodes. Venous collateralization is suspected in the region of the coronary vein and gastrohepatic ligament. The prostate is moderately enlarged at 5.3 cm. The bladder is decompressed by a Henning catheter. Sigmoid diverticulosis is severe. An anastomotic suture line is noted along the right colon. Bowel wall thickening likely reflects portal hypertension. There is no small bowel obstruction. IMPRESSION: 1. A subcutaneous mass along the left lower quadrant may represent a seroma within a subcutaneous scar, or ascites within a tiny hernia. 2. Advanced morphologic changes of cirrhosis. Large ascites. 3. Bowel wall thickening likely reflects portal hypertension. Correlate to exclude enterocolitis. Electronically signed by: Barbara Paul MD (02/28/2020 1:32 PM) [id number]
--- NOTE | 2020-02-28 14:07 | PATHOLOGY ---
Note [facility] Accession Number: [id number] TESTS RESULT FLAG UNITS REF RANGE LAB Clinician Provided Cytology Information No. of containers..01 Other (Miscellaneous) Source: ASCITES DIAGNOSIS: 02 ASCITES NEGATIVE FOR MALIGNANT CELLS. FEW MESOTHELIAL CELLS PRESENT WITHIN A BACKGROUND OF NUMEROUS NEUTROPHILS. THIS INTERPRETATION INCLUDES EVALUATION OF A CELL BLOCK. Signed out by: 02 Ajit Espinoza MD, Pathologist NPI- [id number] Performed by: Mckenzie Boone, Produce Field Merchandiser ([facility]) Gross description: 35ML, CLOUDY YELLOW, 1 TP 1 CB /LCS 02/27/2020 1551 Local FLAG LEGEND: L-Low Normal,H-High Normal,LL-Alert Low,HH-Alert High <-Panic Low,>-Panic High,A-Abnormal,AA-Critical Abnormal Performed at: [facility] [address] [place] [address] Roberto Neri MD, 02 [facility] [address] [place] [address] Ajit Espinoza MD, Specimen Comment: A courtesy copy of this report has been sent to [phone], [phone] Specimen Comment: [id number] Specimen Comment: Report sent to / DR CARLTON Specimen Comment: A duplicate report has been generated due to demographic updates. Performed at: 01 [facility] [address], [place], [place] [id number] MD Roberto Neri MD Phone: [phone]
--- NOTE | 2020-02-28 15:21 | NUR ---
SS following up with discharge planning. SS reviewed pt chart and discussed with pt RN. Pt is LTC resident from [place]. Pt currently on room air and having HD today. Pt on IV Micafungin and IV Zosyn. COVID19 negative. Pt NPO. SS will continue to follow for discharge planning.
[2020-02-29] VITALS (12 sets, daily range): BP systolic 69–118; BP diastolic 48–82
[2020-02-29] MEDS: SODIUM BICARBONATE VIAL 150 MEQ in IV DEXTROSE 5% 1,000 ML IV SCH (03:32)
[2020-02-29] MEDS: PIPERACILLIN/TAZOBACTAM 2.25 GM in IV NORMAL SALINE 50ML 50 ML IV SCH (05:47)
[2020-02-29] MEDS: NOREPINEPHRINE VIAL 32 MG in IV D5W 250ML IV PRN (05:48)
[2020-02-29 06:24] LABS: HEMATOCRIT 41.6 % (39.0-53.0); HEMOGLOBIN 13.6 g/dL (13.0-17.5); RED BLOOD COUNT 4.44 x10^6/uL (4.30-5.70); RED CELL DISTRIBUTION WIDTH 18.2 % (11.5-14.5)
[2020-02-29 06:34] LABS: ALBUMIN 2.1 g/dL (3.4-5.0); ALBUMIN/GLOBULIN RATIO 0.5 (1.0-1.7); CALCIUM 7.5 mg/dL (8.5-10.1); CREATININE 4.7 mg/dL (0.7-1.3); GFR 12.4; POTASSIUM 4.2 mmol/L (3.5-5.1); TOTAL BILIRUBIN 2.5 mg/dL (0.2-1.0); TOTAL PROTEIN 6.1 g/dL (6.4-8.2)
[2020-02-29 07:00] LABS: MAGNESIUM 2.8 mg/dL (1.8-2.4); PHOSPHORUS 5.3 mg/dL (2.6-4.7)
[2020-02-29] MEDS: INSULIN LISPRO 300 UNITS/3 ML VIAL. SQ SCH (08:00)
--- NOTE | 2020-02-29 08:03 | PDOC ---
Infectious Disease Note Subjective Subjective Doing ok. Has generalized aches. No F but occ chill. No Nausea/V/D/SOA/rash Vital Sign Vital Signs Vital Signs Date Time Temp Pulse Resp B/P (MAP) Pulse Ox O2 Delivery O2 Flow Rate FiO2 02/29/20 06:00 80 22 85/50 (62) 96 Room Air 02/29/20 04:00 98.6 98.6 Physical Exam PHYSICAL EXAM CONSTITUTIONAL: He appears comfortable. He is in no acute distress. He is lying in bed. Confused HEENT: He has normal conjunctivae. Oral cavity: Oropharynx was dry but clear. NECK: Supple. No fullness. LUNGS: Decreased in the bases. HEART: S1, S2. ABDOMEN: Large. He has ascites. There is no gross tenderness. He has firmness around the area in the left periumbilical area that is without redness, it is nontender, does not reduce. There is no bruising. There is no warmth. EXTREMITIES: No clubbing, cyanosis. He has got chronic lower extremity edema and changes.- some scabs SKIN: Warm to touch without generalized signs of rash. Beginning to mottle NEUROLOGIC: He answers questions, moves all extremities, but is confused. PSYCHIATRIC: Affect is pleasant. IV: RIJ and HD cath Labs Lab Laboratory Tests Test 02/28/20 09:10 02/28/20 09:40 02/28/20 13:00 02/29/20 05:30 O2 Saturation 94 % (92-99) Arterial Blood pH 7.41 (7.35-7.45) Arterial Blood pCO2 at Patient Temp 17 mmHg (35-46) Arterial Blood pO2 at Patient Temp 72 mmHg (65-108) Arterial Blood HCO3 11 mmol/L (21-28) Arterial Blood Base Excess -11 mmol/L (-3-3) Lactic Acid Level 14.4 mmol/L (0.4-2.0) 14.0 mmol/L (0.4-2.0) 20.6 mmol/L (0.4-2.0) Sodium Level 134 mmol/L (136-145) Potassium Level 4.2 mmol/L (3.5-5.1) Chloride Level 89 mmol/L (98-107) Carbon Dioxide Level 13 mmol/L (21-32) Anion Gap 32 (6-14) Blood Urea Nitrogen 63 mg/dL (8-26) Creatinine 4.7 mg/dL (0.7-1.3) Estimated GFR (Cockcroft-Gault) 12.4 BUN/Creatinine Ratio 13 (6-20) Glucose Level 110 mg/dL (70-99) Calcium Level 7.5 mg/dL (8.5-10.1) Phosphorus Level 5.3 mg/dL (2.6-4.7) Magnesium Level 2.8 mg/dL (1.8-2.4) Total Bilirubin 2.5 mg/dL (0.2-1.0) Aspartate Amino Transf (AST/SGOT) 333 U/L (15-37) Alanine Aminotransferase (ALT/SGPT) 86 U/L (16-63) Alkaline Phosphatase 95 U/L (46-116) Total Protein 6.1 g/dL (6.4-8.2) Albumin 2.1 g/dL (3.4-5.0) Albumin/Globulin Ratio 0.5 (1.0-1.7) Micro CT 02/27 IMPRESSION: 1. A subcutaneous mass along the left lower quadrant may represent a seroma within a subcutaneous scar, or ascites within a tiny hernia. 2. Advanced morphologic changes of cirrhosis. Large ascites. 3. Bowel wall thickening likely reflects portal hypertension. Correlate to exclude enterocolitis. GRAM STAIN Final Final NO ORGANISMS SEEN. SQUAMOUS EPI CELL:NOT APPLICABLE PMN (WBCs):MANY Unless otherwise specified, Testing Performed by: [address] [address] For Inquires, the Physician may contact the Microbiology department at [phone] Microbiology 02/27/20 Gram Stain - Final, Resulted 02/27/20 Aerobic and Anaerobic Culture, Resulted Pending 02/26/20 Blood Culture - Final, Complete Objective Assessment Ecoli sepsis - 02/25 ? Enteric - d/w Micro this am Leukocytosis - up again ANSON - started HD 02/26 Lactic acidosis - increased Hypotension - On Levophed but decreasing Ascites s/p Paracentesis of 5.5 Liters 02/25 cult pending WBC 2265 on 02/26 Afib Very poor historian Plan Plan of Care With increase Lactic/WBC will Discont Zosyn and begin Meropenem - d/w micro and Ecoli res to Amp/Cipro/Levoflox only Add Flagyl Dosed Cefepime times one 02/27 D/c additional Daptomycin 02/25 F/u labs and cults Cont Micafungin for now as at risk for yeast Critically ill D/w Dr. Jordan D/w nursing JAMEY NICOLAS MD Feb 29, 2020 08:03
--- NOTE | 2020-02-29 08:20 | EKG ---
[facility] [address] [place] [address] Test Date: 2020-02-29 Test Time: 08:18:00 Pat Name: AMANDA BARRY Department: Room: [facility] 1 Gender: M Journal Clerk: THANG : 1950 Requested By: JORGE LUIS CARLTON Order Number: [id number] Reading MD: Measurements Intervals [place] Rate: 146 P: UT: QRS: -31 QRSD: 96 T: 88 QT: 328 QTc: 513 Interpretive Statements IRREGULAR RHYTHM, NO P-WAVE FOUND ABNORMAL LEFT AXIS DEVIATION LOW VOLTAGE CONSIDER LEFT VENTRICULAR HYPERTROPHY QRS(T) CONTOUR ABNORMALITY CONSIDER ANTEROLATERAL INFARCT CONSIDER INFERIOR INFARCT ABNORMAL ECG RI6.02 Compared to ECG 02/26/2020 12:28:40 Low QRS voltage now present Myocardial infarct finding now present Sinus rhythm no longer present First degree AV block no longer present Prolonged QT interval no longer present
--- NOTE | 2020-02-29 08:37 | PDOC2 ---
CONSULT Date of Consult Date of Consult DATE: 02/29/20 TIME: 08:27 Reason for Consult Reason for Consult: incarcerated hernia Referring Physician Referring Physician: Dr Jordan Identification/Chief Complaint Chief Complaint hypotension Source Source: Chart review, Patient History of Present Illness Reason for Visit: Patient is a very poor historian. Difficulty with communication From records, [facility] patient, hx of cirrhosis([place])- increasing weakness, hypotension Seen in ICU , surgical consult for mass LLQ, ? hernia--patient denies pain He is currently on pressor support, rising lactic acid, leukocytosis, acute kidney failure Past Medical History Past Medical History A Fib, HTN, LIZZIE, DM, GERD, SHELBY/cirrhosis, esophageal varices, cognitive communication deficit Past Surgical History Past Surgical History: Colon Resection Family History Family History: Family History Unknown Social History ALCOHOL: none Current Problem List Problem List Problems Medical Problems: (1) Acute renal failure Status: Acute (2) Hypotension Status: Acute (3) Lactic acidosis Status: Acute Current Medications Current Medications Current Medications Sodium Chloride 1,000 ml @ 1,000 mls/hr 1X ONCE IV Last administered on 02/26/20at 13:03; Start 02/26/20 at 12:30; Stop 02/26/20 at 13:29; Status DC Sodium Chloride 1,000 ml @ 1,000 mls/hr 1X ONCE IV Last administered on 02/26/20at 14:14; Start 02/26/20 at 14:00; Stop 02/26/20 at 14:59; Status DC Sodium Bicarbonate (Sodium Bicarb Adult 8.4% Syr) 50 meq 1X ONCE IV Last administered on 02/26/20at 14:14; Start 02/26/20 at 14:15; Stop 02/26/20 at 14:16; Status DC Piperacillin Sod/ Tazobactam Sod 3.375 gm/Sodium Chloride 50 ml @ 100 mls/hr 1X ONCE IV Last administered on 02/26/20at 14:59; Start 02/26/20 at 14:45; Stop 02/26/20 at 15:14; Status DC Albumin Human 100 ml @ 100 mls/hr 1X ONCE IV Last administered on 02/26/20at 14:59; Start 02/26/20 at 14:45; Stop 02/26/20 at 15:44; Status DC Ondansetron HCl (Zofran) 4 mg PRN Q8HRS PRN IV NAUSEA/VOMITING; Start 02/26/20 at 14:45; Stop 02/27/20 at 14:44; Status DC Sodium Chloride 1,000 ml @ 150 mls/hr Q6H40M IV Last administered on 02/26/20at 16:28; Start 02/26/20 at 14:40; Stop 02/26/20 at 18:19; Status DC Sodium Chloride 1,000 ml @ 1,000 mls/hr 1X ONCE IV Last administered on 02/26/20at 15:13; Start 02/26/20 at 14:45; Stop 02/26/20 at 15:44; Status DC Pantoprazole Sodium (Protonix) 40 mg DAILYAC PO Last administered on 02/28/20at 08:05; Start 02/27/20 at 07:30 Rifaximin (Xifaxan) 550 mg Q12HR PO Last administered on 02/28/20at 08:06; Start 02/26/20 at 21:00 Norepinephrine Bitartrate 8 mg/ Dextrose 258 ml @ 24.188 mls/ hr CONT PRN IV PER PROTOCOL Last administered on 02/27/20at 10:55; Start 02/26/20 at 16:30; Stop 02/27/20 at 14:00; Status DC Piperacillin Sod/ Tazobactam Sod (Zosyn Per Pharmacy) 1 each PRN DAILY PRN MC SEE COMMENTS; Start 02/26/20 at 16:45; Stop 02/29/20 at 08:00; Status DC Daptomycin 500 mg/ Sodium Chloride 50 ml @ 100 mls/hr 1X ONCE IV Last administered on 02/26/20at 17:34; Start 02/26/20 at 18:00; Stop 02/26/20 at 18:29; Status DC Piperacillin Sod/ Tazobactam Sod 2.25 gm/Sodium Chloride 50 ml @ 100 mls/hr Q8HRS IV Last administered on 02/29/20at 05:47; Start 02/26/20 at 17:00; Stop 02/29/20 at 08:00; Status DC Pharmacy Consult (C.diff Med Screen By Rx) 1 each 1X ONCE MC ; Start 02/26/20 at 16:45; Stop 02/26/20 at 16:46; Status Cancel Sodium Bicarbonate 150 meq/Dextrose 1,150 ml @ 150 mls/hr Q7H40M IV Last administered on 02/29/20at 03:32; Start 02/26/20 at 17:30 Micafungin Sodium 100 mg/Dextrose 100 ml @ 100 mls/hr Q24H IV Last administered on 02/28/20at 08:07; Start 02/27/20 at 09:00 Lidocaine HCl (Buffered Lidocaine 1%) 3 ml STK-MED ONCE .ROUTE ; Start 02/27/20 at 09:59; Stop 02/27/20 at 10:00; Status DC Lidocaine HCl (Buffered Lidocaine 1%) 4 ml 1X ONCE INJ Last administered on 02/27/20at 10:46; Start 02/27/20 at 10:45; Stop 02/27/20 at 10:46; Status DC Sodium Chloride 1,000 ml @ 1,000 mls/hr Q1H PRN IV hypotension; Start 02/27/20 at 11:52; Stop 02/27/20 at 17:51; Status DC Albumin Human 200 ml @ 200 mls/hr 1X PRN PRN IV Hypotension Last administered on 02/27/20at 14:59; Start 02/27/20 at 12:00; Stop 02/27/20 at 17:59; Status DC Sodium Chloride 1,000 ml @ 400 mls/hr Q2H30M PRN IV PATENCY; Start 02/27/20 at 11:52; Stop 02/27/20 at 23:51; Status DC Info (PHARMACY MONITORING -- do not chart) 1 each PRN DAILY PRN MC SEE COMMENTS; Start 02/27/20 at 12:00; Stop 02/27/20 at 14:17; Status DC Info (PHARMACY MONITORING -- do not chart) 1 each PRN DAILY PRN MC SEE COMMENTS; Start 02/27/20 at 12:00 Norepinephrine Bitartrate 32 mg/ Dextrose 250 ml @ 17.5 mls/hr CONT PRN IV SEE I/O RECORD Last administered on 02/29/20at 05:48; Start 02/27/20 at 13:30 Lactobacillus Rhamnosus (Culturelle) 1 cap BID PO Last administered on 02/28/20at 08:05; Start 02/27/20 at 21:00 Insulin Human Lispro (HumaLOG) 0-5 UNITS TIDWMEALS SQ ; Start 02/28/20 at 12:00 Dextrose (Dextrose 50%-Water Syringe) 12.5 gm PRN Q15MIN PRN IV SEE COMMENTS; Start 02/28/20 at 09:00 Cefepime HCl (Maxipime) 1 gm 1X ONCE IVP Last administered on 02/28/20at 16:38; Start 02/28/20 at 10:15; Stop 02/28/20 at 10:16; Status DC Sodium Chloride 1,000 ml @ 1,000 mls/hr Q1H PRN IV hypotension; Start 02/28/20 at 11:30; Stop 02/28/20 at 23:00; Status DC Albumin Human 200 ml @ 200 mls/hr 1X PRN PRN IV Hypotension; Start 02/28/20 at 11:30; Stop 02/28/20 at 17:29; Status DC Acetaminophen (Tylenol) 500 mg 1X PRN PRN PO MILD PAIN / TEMP > 100.3'F; Start 02/28/20 at 11:30; Stop 02/28/20 at 23:00; Status DC Diphenhydramine HCl (Benadryl) 25 mg 1X PRN PRN IV ITCHING; Start 02/28/20 at 11:30; Stop 02/28/20 at 23:00; Status DC Diphenhydramine HCl (Benadryl) 25 mg 1X PRN PRN IV ITCHING; Start 02/28/20 at 11:30; Stop 02/28/20 at 23:00; Status DC Sodium Chloride (Normal Saline Flush) 10 ml 1X PRN PRN IV AP catheter pack; Start 02/28/20 at 11:30; Stop 02/28/20 at 23:00; Status DC Sodium Chloride (Normal Saline Flush) 10 ml 1X PRN PRN IV TRAFFIC ENGINEERING DIRECTOR catheter pack; Start 02/28/20 at 11:30; Stop 02/28/20 at 23:00; Status DC Sodium Chloride 1,000 ml @ 400 mls/hr Q2H30M PRN IV PATENCY; Start 02/28/20 at 11:30; Stop 02/28/20 at 23:00; Status DC Info (PHARMACY MONITORING -- do not chart) 1 each PRN DAILY PRN MC SEE COMMENTS; Start 02/28/20 at 11:30; Status UNV Meropenem 500 mg/ Sodium Chloride 50 ml @ 100 mls/hr DAILY IV ; Start 02/29/20 at 09:00 Metronidazole 100 ml @ 100 mls/hr Q8HRS IV ; Start 02/29/20 at 08:00 Active Scripts Active Reported Xifaxan (Rifaximin) 550 Mg Tablet 1 Tab PO BID 10 Days Pantoprazole Sodium (Pantoprazole Sodium) 40 Mg Tablet.dr 40 Mg PO DAILYAC Daily Vitamin Formula-Minerals (Multivitamin With Minerals) 1 Each Tablet 1 Tab PO DAILY 30 Days Mag-Oxide (Magnesium Oxide) 200 Mg Tablet 400 Mg PO BID Lasix (Furosemide) 40 Mg Tablet 40 Mg PO BID Lactulose 20 Gm/30 Ml Solution 10 Gm PO Q4HRS Janumet 50-1,000 Mg Tablet (Sitagliptin Phos/Metformin Hcl) 1 Each Tablet 1 Tab PO BID Inderal Xl (Propranolol Hcl) 80 Mg Cap.er.24h 1 Cap PO DAILY 30 Days Aldactone (Spironolactone) 25 Mg Tablet 1 Tab PO BID Allergies Allergies: Coded Allergies: No Known Drug Allergies (Unverified , 02/26/20) ROS Review of System unable to obtain due to cognitive status Physical Exam General: Cooperative, Other (ill appearing ) HEENT: Mucous membr. moist/pink Lungs: Other (diminished) Abdomen: Other (ascites, LLQ mass, no defect palpated, feels solid ) Extremities: No cyanosis, No edema Skin: No rashes, No significant lesion Neuro: Other (speech difficulty ) Psych/Mental Status: Other (confusion) Vitals VITALS Vital Signs Date Time Temp Pulse Resp B/P (MAP) Pulse Ox O2 Delivery O2 Flow Rate FiO2 02/29/20 06:00 80 22 85/50 (62) 96 Room Air 02/29/20 04:00 98.6 98.6 Labs Labs Laboratory Tests Test 02/27/20 08:40 02/27/20 09:25 02/27/20 10:45 02/27/20 11:45 O2 Saturation 97 % (92-99) Arterial Blood pH 7.17 (7.35-7.45) Arterial Blood pCO2 at Patient Temp 16 mmHg (35-46) Arterial Blood pO2 at Patient Temp 98 mmHg (65-108) Arterial Blood HCO3 6 mmol/L (21-28) Arterial Blood Base Excess -20 mmol/L (-3-3) FiO2 21 White Blood Count 12.5 x10^3/uL (4.0-11.0) Red Blood Count 4.85 x10^6/uL (4.30-5.70) Hemoglobin 15.1 g/dL (13.0-17.5) Hematocrit 47.4 % (39.0-53.0) Mean Corpuscular Volume 98 fL (79-100) Mean Corpuscular Hemoglobin 31 pg (25-35) Mean Corpuscular Hemoglobin Concent 32 g/dL (31-37) Red Cell Distribution Width 19.3 % (11.5-14.5) Platelet Count 163 x10^3/uL (140-400) Neutrophils (%) (Auto) 85 % (31-73) Lymphocytes (%) (Auto) 3 % (24-48) Monocytes (%) (Auto) 10 % (0-9) Eosinophils (%) (Auto) 2 % (0-3) Basophils (%) (Auto) 0 % (0-3) Neutrophils # (Auto) 10.6 x10^3/uL (1.8-7.7) Lymphocytes # (Auto) 0.4 x10^3/uL (1.0-4.8) Monocytes # (Auto) 1.3 x10^3/uL (0.0-1.1) Eosinophils # (Auto) 0.2 x10^3/uL (0.0-0.7) Basophils # (Auto) 0.0 x10^3/uL (0.0-0.2) Sodium Level 128 mmol/L (136-145) Potassium Level 4.9 mmol/L (3.5-5.1) Chloride Level 92 mmol/L (98-107) Carbon Dioxide Level 10 mmol/L (21-32) Anion Gap 26 (6-14) Blood Urea Nitrogen 106 mg/dL (8-26) Creatinine 6.0 mg/dL (0.7-1.3) Estimated GFR (Cockcroft-Gault) 9.4 BUN/Creatinine Ratio 18 (6-20) Glucose Level 231 mg/dL (70-99) Lactic Acid Level 12.8 mmol/L (0.4-2.0) Calcium Level 8.2 mg/dL (8.5-10.1) Total Bilirubin 1.6 mg/dL (0.2-1.0) Aspartate Amino Transf (AST/SGOT) 34 U/L (15-37) Alanine Aminotransferase (ALT/SGPT) 19 U/L (16-63) Alkaline Phosphatase 83 U/L (46-116) Total Protein 7.3 g/dL (6.4-8.2) Albumin 2.4 g/dL (3.4-5.0) Albumin/Globulin Ratio 0.5 (1.0-1.7) Body Fluid Source Ascites Body Fluid Color Yellow Body Fluid Clarity Hazy Body Fluid Nucleated Cells 2265 /cmm (Not Established) Body Fluid Mononuclear WBCs (%) 11 % Body Fluid Polymorphonuclear Cells 89 % Body Fluid Total RBCs Counted 2042 /cmm (Not Established) Body Fluid Glucose 199 mg/dL (.) Body Fluid Total Protein 0.9 g/dL (.) Body Fluid Lactate Dehydrogenase 86 IU/L (.) Body Fluid Amylase 5 U/L (.) Hepatitis B Surface Antibody, Quant <3.1 mIU/mL (Immunity>9.9) Test 02/27/20 13:25 02/28/20 04:40 02/28/20 09:10 02/28/20 09:40 Lactic Acid Level 12.5 mmol/L (0.4-2.0) 14.4 mmol/L (0.4-2.0) White Blood Count 16.9 x10^3/uL (4.0-11.0) Red Blood Count 4.23 x10^6/uL (4.30-5.70) Hemoglobin 13.0 g/dL (13.0-17.5) Hematocrit 39.0 % (39.0-53.0) Mean Corpuscular Volume 92 fL (79-100) Mean Corpuscular Hemoglobin 31 pg (25-35) Mean Corpuscular Hemoglobin Concent 33 g/dL (31-37) Red Cell Distribution Width 18.2 % (11.5-14.5) Platelet Count 80 x10^3/uL (140-400) Neutrophils (%) (Auto) 92 % (31-73) Lymphocytes (%) (Auto) 2 % (24-48) Monocytes (%) (Auto) 5 % (0-9) Eosinophils (%) (Auto) 0 % (0-3) Basophils (%) (Auto) 0 % (0-3) Neutrophils # (Auto) 15.6 x10^3/uL (1.8-7.7) Lymphocytes # (Auto) 0.4 x10^3/uL (1.0-4.8) Monocytes # (Auto) 0.9 x10^3/uL (0.0-1.1) Eosinophils # (Auto) 0.0 x10^3/uL (0.0-0.7) Basophils # (Auto) 0.1 x10^3/uL (0.0-0.2) Prothrombin Time 22.6 SEC (11.7-14.0) Prothromb Time International Ratio 2.0 (0.8-1.1) Sodium Level 133 mmol/L (136-145) Potassium Level 3.5 mmol/L (3.5-5.1) Chloride Level 90 mmol/L (98-107) Carbon Dioxide Level 15 mmol/L (21-32) Anion Gap 28 (6-14) Blood Urea Nitrogen 81 mg/dL (8-26) Creatinine 5.0 mg/dL (0.7-1.3) Estimated GFR (Cockcroft-Gault) 11.6 BUN/Creatinine Ratio 16 (6-20) Glucose Level 150 mg/dL (70-99) Calcium Level 7.5 mg/dL (8.5-10.1) Total Bilirubin 2.1 mg/dL (0.2-1.0) Aspartate Amino Transf (AST/SGOT) 155 U/L (15-37) Alanine Aminotransferase (ALT/SGPT) 40 U/L (16-63) Alkaline Phosphatase 65 U/L (46-116) Ammonia 50 mcmol/L (11-34) Total Protein 6.1 g/dL (6.4-8.2) Albumin 2.6 g/dL (3.4-5.0) Albumin/Globulin Ratio 0.7 (1.0-1.7) O2 Saturation 94 % (92-99) Arterial Blood pH 7.41 (7.35-7.45) Arterial Blood pCO2 at Patient Temp 17 mmHg (35-46) Arterial Blood pO2 at Patient Temp 72 mmHg (65-108) Arterial Blood HCO3 11 mmol/L (21-28) Arterial Blood Base Excess -11 mmol/L (-3-3) Test 02/28/20 13:00 02/29/20 05:30 Lactic Acid Level 14.0 mmol/L (0.4-2.0) 20.6 mmol/L (0.4-2.0) Sodium Level 134 mmol/L (136-145) Potassium Level 4.2 mmol/L (3.5-5.1) Chloride Level 89 mmol/L (98-107) Carbon Dioxide Level 13 mmol/L (21-32) Anion Gap 32 (6-14) Blood Urea Nitrogen 63 mg/dL (8-26) Creatinine 4.7 mg/dL (0.7-1.3) Estimated GFR (Cockcroft-Gault) 12.4 BUN/Creatinine Ratio 13 (6-20) Glucose Level 110 mg/dL (70-99) Calcium Level 7.5 mg/dL (8.5-10.1) Phosphorus Level 5.3 mg/dL (2.6-4.7) Magnesium Level 2.8 mg/dL (1.8-2.4) Total Bilirubin 2.5 mg/dL (0.2-1.0) Aspartate Amino Transf (AST/SGOT) 333 U/L (15-37) Alanine Aminotransferase (ALT/SGPT) 86 U/L (16-63) Alkaline Phosphatase 95 U/L (46-116) Total Protein 6.1 g/dL (6.4-8.2) Albumin 2.1 g/dL (3.4-5.0) Albumin/Globulin Ratio 0.5 (1.0-1.7) Procalcitonin 7.27 ng/mL (0.00-0.10) Laboratory Tests Test 02/28/20 09:10 02/28/20 09:40 02/28/20 13:00 02/29/20 05:30 O2 Saturation 94 % (92-99) Arterial Blood pH 7.41 (7.35-7.45) Arterial Blood pCO2 at Patient Temp 17 mmHg (35-46) Arterial Blood pO2 at Patient Temp 72 mmHg (65-108) Arterial Blood HCO3 11 mmol/L (21-28) Arterial Blood Base Excess -11 mmol/L (-3-3) Lactic Acid Level 14.4 mmol/L (0.4-2.0) 14.0 mmol/L (0.4-2.0) 20.6 mmol/L (0.4-2.0) Sodium Level 134 mmol/L (136-145) Potassium Level 4.2 mmol/L (3.5-5.1) Chloride Level 89 mmol/L (98-107) Carbon Dioxide Level 13 mmol/L (21-32) Anion Gap 32 (6-14) Blood Urea Nitrogen 63 mg/dL (8-26) Creatinine 4.7 mg/dL (0.7-1.3) Estimated GFR (Cockcroft-Gault) 12.4 BUN/Creatinine Ratio 13 (6-20) Glucose Level 110 mg/dL (70-99) Calcium Level 7.5 mg/dL (8.5-10.1) Phosphorus Level 5.3 mg/dL (2.6-4.7) Magnesium Level 2.8 mg/dL (1.8-2.4) Total Bilirubin 2.5 mg/dL (0.2-1.0) Aspartate Amino Transf (AST/SGOT) 333 U/L (15-37) Alanine Aminotransferase (ALT/SGPT) 86 U/L (16-63) Alkaline Phosphatase 95 U/L (46-116) Total Protein 6.1 g/dL (6.4-8.2) Albumin 2.1 g/dL (3.4-5.0) Albumin/Globulin Ratio 0.5 (1.0-1.7) Procalcitonin 7.27 ng/mL (0.00-0.10) Assessment/Plan Assessment/Plan cirrhosis, renal failure, hypotension, Afib LLQ mass--reviewed CT, no definite hernia, no bowel involvement not a surgical candidate ROBERTO LAURA GIS TECHNICIAN Feb 29, 2020 08:37
[2020-02-29] MEDS ORDERED: MEROPENEM 500 MG in IV NORMAL SALINE 50ML 50 ML IV SCH (09:00)
[2020-02-29] MEDS ORDERED: DIGOXIN IV 500 MCG/2 ML AMPUL. IV ONE (09:00)
[2020-02-29] MEDS ORDERED: PANTOPRAZOLE IV PUSH 40 MG VIAL. IVP SCH (09:30)
[2020-02-29] MEDS: LACTOBACILLUS RHAMNOSUS GG 1 CAPSULE. PO SCH (09:36)
[2020-02-29] MEDS: rifAXIMin 550 MG TABLET PO SCH (09:37)
--- NOTE | 2020-02-29 09:48 | PDOC ---
DATE OF SERVICE DATE: 02/29/20 TIME: 09:36 SUBJECTIVE ROS Lethargic , Pressor requirement gone up OBJECTIVE Vital Signs Vital Signs Date Time Temp Pulse Resp B/P (MAP) Pulse Ox O2 Delivery O2 Flow Rate FiO2 02/29/20 08:40 160 02/29/20 06:00 22 85/50 (62) 96 Room Air 02/29/20 04:00 98.6 98.6 I & 0 Intake and Output 02/29/20 07:00 Intake Total 4365.2 ml Output Total 20 ml Balance 4345.2 ml IV Total 4365.2 ml Output Urine Total 20 ml PHYSICAL EXAM Physical Exam GENERAL no acute distress , lying in bed. HEENT: Oropharynx dry NECK: Supple. LUNGS: Decreased in the bases, non labored HEART: S1, S2. ABDOMEN: Distended , ascites + ,left periumbilical area EXTREMITIES: No clubbing, cyanosis. chronic lower extremity edema SKIN: No rash. NEUROLOGIC: Awake,,answers questions, moves all extremities, lethargic, Mildly confused . Henning +, No CVA or SP tenderness DIAGNOSIS/ASSESSMENT Assessment & Plan ANSON - ATN 2/2 Sepsis /Hypotension vs Hepatorenal Syndrome , Large Volume Paracentesis(26 lts) recently, as well as on Lasix and Aldactone Anuric, Severe Metabolic abnormalities , Recd Dialysis x2 Hypotensive , worsening lactic acidosis , On high dose of Levophed Start CRRT if aggressive care is pursued in opinion of others involved in pt care - , advanced cirrhosis- per GI , sepsis , ?Hepatorenal (only treatment is Liver Tx ) Access- Temp HDC Supportive care, avoid nephrotoxins, Metabolic acidosis- severe - Multifactorial , Has been on Metformin as well Initiated on HD 02/26, and again 02/27 with 40 bicarb, persistent Acidosis 2/2 sepsis HypoNatremia - suspect 2/2 Cirrhosis Nonalcoholic steatohepatitis with liver cirrhosis,, portal hypertension,esophageal varices Ammonia is rising , already on rifaximin 550 mg twice a day Recurrent ascites that required multiple paracentesis- most recent 7-10 days ago with removal of 26 liters of fluid Received 25% albumin x 4; He was also on Lasix and Aldactone S/P Paracentesis on 02/26- 5 07/12 Lts fluid drained CKD stage 2/3 - Baseline Cr 1.2 and BUN 35 on 02/18 DM- On metformin prior to Hospitalization Leukocytosis/ lactic Acidosis -Sepsis with growth of Gram-negative rods Hypertension- currently Hypotensive and on Levophed. Hx of Paroxysmal Atrial fibrillation. H/o right colectomy CoViD Negative Discussed with RN COMMENT/RELEVANT DATA Meds Current Medications Medications (Trade) Dose Ordered Sig/Karley Start Time Stop Time Status Last Admin Dose Admin Acetaminophen (Tylenol) 500 mg 1X PRN PRN 02/28/20 11:30 02/28/20 23:00 DC Albumin Human 200 ml @ 200 mls/hr 1X PRN PRN 02/28/20 11:30 02/28/20 17:29 DC Cefepime HCl (Maxipime) 1 gm 1X ONCE 02/28/20 10:15 02/28/20 10:16 DC 02/28/20 16:38 1 GM Daptomycin 500 mg/ Sodium Chloride 50 ml @ 100 mls/hr 1X ONCE 02/26/20 18:00 02/26/20 18:29 DC 02/26/20 17:34 100 MLS/HR Dextrose (Dextrose 50%-Water Syringe) 12.5 gm PRN Q15MIN PRN 02/28/20 09:00 Digoxin (Lanoxin) 500 mcg 1X ONCE 02/29/20 09:00 02/29/20 09:01 DC 02/29/20 08:40 500 MCG Diphenhydramine HCl (Benadryl) 25 mg 1X PRN PRN 02/28/20 11:30 02/28/20 23:00 DC Info (PHARMACY MONITORING -- do not chart) 1 each PRN DAILY PRN 02/28/20 11:30 UNV Insulin Human Lispro (HumaLOG) 0-5 UNITS TIDWMEALS 02/28/20 12:00 Lactobacillus Rhamnosus (Culturelle) 1 cap BID 02/27/20 21:00 02/28/20 08:05 1 CAP Lidocaine HCl (Buffered Lidocaine 1%) 4 ml 1X ONCE 02/27/20 10:45 02/27/20 10:46 DC 02/27/20 10:46 4 ML Meropenem 500 mg/ Sodium Chloride 50 ml @ 100 mls/hr DAILY 02/29/20 09:00 02/29/20 09:30 100 MLS/HR Metronidazole 100 ml @ 100 mls/hr Q8HRS 02/29/20 08:00 02/29/20 09:32 100 MLS/HR Micafungin Sodium 100 mg/Dextrose 100 ml @ 100 mls/hr Q24H 02/27/20 09:00 02/28/20 08:07 100 MLS/HR Norepinephrine Bitartrate 32 mg/ Dextrose 250 ml @ 17.5 mls/hr CONT PRN 02/27/20 13:30 02/29/20 05:48 36.586 MLS/HR Norepinephrine Bitartrate 8 mg/ Dextrose 258 ml @ 24.188 mls/ hr CONT PRN 02/26/20 16:30 02/27/20 14:00 DC 02/27/20 10:55 67.8 MLS/HR Ondansetron HCl (Zofran) 4 mg PRN Q8HRS PRN 02/26/20 14:45 02/27/20 14:44 DC Pantoprazole Sodium (PROTONIX VIAL for IV PUSH) 40 mg DAILYAC 02/29/20 09:30 Pantoprazole Sodium (Protonix) 40 mg DAILYAC 02/27/20 07:30 02/29/20 09:29 DC 02/28/20 08:05 40 MG Pharmacy Consult (C.diff Med Screen By Rx) 1 each 1X ONCE 02/26/20 16:45 02/26/20 16:46 Cancel Piperacillin Sod/ Tazobactam Sod (Zosyn Per Pharmacy) 1 each PRN DAILY PRN 02/26/20 16:45 02/29/20 08:00 DC Piperacillin Sod/ Tazobactam Sod 2.25 gm/Sodium Chloride 50 ml @ 100 mls/hr Q8HRS 02/26/20 17:00 02/29/20 08:00 DC 02/29/20 05:47 100 MLS/HR Piperacillin Sod/ Tazobactam Sod 3.375 gm/Sodium Chloride 50 ml @ 100 mls/hr 1X ONCE 02/26/20 14:45 02/26/20 15:14 DC 02/26/20 14:59 100 MLS/HR Rifaximin (Xifaxan) 550 mg Q12HR 02/26/20 21:00 02/28/20 08:06 550 MG Sodium Bicarbonate 150 meq/Dextrose 1,150 ml @ 150 mls/hr Q7H40M 02/26/20 17:30 02/29/20 03:32 150 MLS/HR Sodium Bicarbonate (Sodium Bicarb Adult 8.4% Syr) 50 meq 1X ONCE 02/26/20 14:15 02/26/20 14:16 DC 02/26/20 14:14 50 MEQ Sodium Chloride 1,000 ml @ 400 mls/hr Q2H30M PRN 02/28/20 11:30 02/28/20 23:00 DC Sodium Chloride (Normal Saline Flush) 10 ml 1X PRN PRN 02/28/20 11:30 02/28/20 23:00 DC Lab Laboratory Tests Test 02/28/20 09:40 02/28/20 13:00 02/29/20 05:30 Lactic Acid Level 14.4 mmol/L (0.4-2.0) 14.0 mmol/L (0.4-2.0) 20.6 mmol/L (0.4-2.0) White Blood Count 38.0 x10^3/uL (4.0-11.0) Red Blood Count 4.44 x10^6/uL (4.30-5.70) Hemoglobin 13.6 g/dL (13.0-17.5) Hematocrit 41.6 % (39.0-53.0) Mean Corpuscular Volume 94 fL (79-100) Mean Corpuscular Hemoglobin 31 pg (25-35) Mean Corpuscular Hemoglobin Concent 33 g/dL (31-37) Red Cell Distribution Width 18.2 % (11.5-14.5) Platelet Count 51 x10^3/uL (140-400) Sodium Level 134 mmol/L (136-145) Potassium Level 4.2 mmol/L (3.5-5.1) Chloride Level 89 mmol/L (98-107) Carbon Dioxide Level 13 mmol/L (21-32) Anion Gap 32 (6-14) Blood Urea Nitrogen 63 mg/dL (8-26) Creatinine 4.7 mg/dL (0.7-1.3) Estimated GFR (Cockcroft-Gault) 12.4 BUN/Creatinine Ratio 13 (6-20) Glucose Level 110 mg/dL (70-99) Calcium Level 7.5 mg/dL (8.5-10.1) Phosphorus Level 5.3 mg/dL (2.6-4.7) Magnesium Level 2.8 mg/dL (1.8-2.4) Total Bilirubin 2.5 mg/dL (0.2-1.0) Aspartate Amino Transf (AST/SGOT) 333 U/L (15-37) Alanine Aminotransferase (ALT/SGPT) 86 U/L (16-63) Alkaline Phosphatase 95 U/L (46-116) Total Protein 6.1 g/dL (6.4-8.2) Albumin 2.1 g/dL (3.4-5.0) Albumin/Globulin Ratio 0.5 (1.0-1.7) Procalcitonin 7.27 ng/mL (0.00-0.10) Results All relevant outside records, renal labs, imaging studies, telemetry/EKG's were reviewed. Justicifation of Admission Dx: Justifications for Admission: Justification of Admission Dx: Yes Acute Renal Failure: 3-Fold Rise in Serum ANATOLY Louis MD Feb 29, 2020 09:48
[2020-02-29] MEDS: MICAFUNGIN 100 MG in IV DEXTROSE 5% 100ML 100 ML IV SCH (10:38)
--- NOTE | 2020-02-29 10:50 | PDOC ---
Date of Service: DATE: 02/29/20 TIME: 10:40 Subjective: Subjective: Pt's best friends - Montez CHAN and his Eneida present. Montez says he is a DNR. Eneida is hoping pt's would call with a kind word. Montez wants to know if Dr. Najera came to see him. Objective: Objective: D/w Dr. Jordna - spoke w/ Dr. Najera who is not planning to come see him. Poor prognosis. Called by nurse - condition worsening. D/w Destinee/surgery. Vital Signs: Vital Signs Date Time Temp Pulse Resp B/P (MAP) Pulse Ox O2 Delivery O2 Flow Rate FiO2 02/29/20 08:40 160 02/29/20 06:00 22 85/50 (62) 96 Room Air 02/29/20 04:00 98.6 98.6 Labs: Laboratory Tests Test 02/28/20 13:00 02/29/20 05:30 02/29/20 09:36 Lactic Acid Level 14.0 mmol/L 20.6 mmol/L White Blood Count 38.0 x10^3/uL Red Blood Count 4.44 x10^6/uL Hemoglobin 13.6 g/dL Hematocrit 41.6 % Mean Corpuscular Volume 94 fL Mean Corpuscular Hemoglobin 31 pg Mean Corpuscular Hemoglobin Concent 33 g/dL Red Cell Distribution Width 18.2 % Platelet Count 51 x10^3/uL Sodium Level 134 mmol/L Potassium Level 4.2 mmol/L Chloride Level 89 mmol/L Carbon Dioxide Level 13 mmol/L Anion Gap 32 Blood Urea Nitrogen 63 mg/dL Creatinine 4.7 mg/dL Estimated GFR (Cockcroft-Gault) 12.4 BUN/Creatinine Ratio 13 Glucose Level 110 mg/dL Calcium Level 7.5 mg/dL Phosphorus Level 5.3 mg/dL Magnesium Level 2.8 mg/dL Total Bilirubin 2.5 mg/dL Aspartate Amino Transf (AST/SGOT) 333 U/L Alanine Aminotransferase (ALT/SGPT) 86 U/L Alkaline Phosphatase 95 U/L Total Protein 6.1 g/dL Albumin 2.1 g/dL Albumin/Globulin Ratio 0.5 Procalcitonin 7.27 ng/mL Glucose (Fingerstick) 101 mg/dL BLOOD CULTURE LC Final Final GRAM NEGATIVE RODS FINAL ID= [ESCHERICHIA COLI] ESCHERICHIA COLI Note [facility] Accession Number: [id number] TESTS RESULT FLAG UNITS REF RANGE LAB Clinician Provided Cytology Information No. of containers..01 Other (Miscellaneous) Source: ASCITES DIAGNOSIS: 02 ASCITES NEGATIVE FOR MALIGNANT CELLS. FEW MESOTHELIAL CELLS PRESENT WITHIN A BACKGROUND OF NUMEROUS NEUTROPHILS. THIS INTERPRETATION INCLUDES EVALUATION OF A CELL BLOCK. Signed out by: 02 Ajit Espinoza MD, Pathologist NPI- [id number] Performed by: 01 Mckenzie Boone, Dent Remover ([facility]) Gross description: 01 35ML, CLOUDY YELLOW, 1 TP 1 CB /LCS 02/27/2020 1551 Local Imaging: CT A/P IMPRESSION: 1. A subcutaneous mass along the left lower quadrant may represent a seroma within a subcutaneous scar, or ascites within a tiny hernia. 2. Advanced morphologic changes of cirrhosis. Large ascites. 3. Bowel wall thickening likely reflects portal hypertension. Correlate to exclude enterocolitis. Renal US Limited examination due to patient body habitus and due to ascites. The left kidney measures 10.3 x 4.8 x 5.2 cm. The right kidney could not be visualized. Henning catheter identified in the urinary bladder. Large ascites. PE: GEN: chronically ill LUNGS: diminished HEART: tachycardic ABD: ascites NEURO/PSYCH: moaning A/P: E coli bacteremia, ESLD, renal failure Leuckotyosis, lactic acidosis - worse -- D/w Dr. Rosas several times this morning. D/w ICU nurses. MELD 32 - 60% 3 month mortality rate. Poor prognosis - discussed in detail w/ DPOA and . They have decided to withdraw care. Justicifation of Admission Dx: Justifications for Admission: Justification of Admission Dx: Yes Acute Renal Failure: 3-Fold Rise in Serum Crea KRYS CLARK Feb 29, 2020 10:50
[2020-02-29] MEDS ORDERED: MORPHINE SULFATE 2 MG/ML VIAL. IV PRN (11:00)
[2020-02-29] MEDS ORDERED: MORPHINE SULFATE 4 MG/ML VIAL. IV PRN (11:00)
[2020-02-29] MEDS ORDERED: GLYCOPYRROLATE 1 MG/5 ML VIAL. IV ONE (11:45)
[2020-02-29] MEDS ORDERED: POTASSIUM CHLORIDE 15 MEQ in DIALYSIS SOLUTION BGK 0/2.5 5,000 ML IV SCH ×3 (12:00)
--- NOTE | 2020-02-29 13:43 | NUR ---
Patient went comfort care at or around 1100. DPOA at bedside. All aggressive care stopped, patient at 1246. Patient belongings with DPOA.
--- NOTE | 2020-02-29 13:53 | PDOC2 ---
CARDIAC CONSULT DATE OF CONSULT Date of Consult DATE: 02/29/20 TIME: 1020 REASON FOR CONSULT Reason for Consult: AFIB RVR vs ventricular tachycardia REFERRING PHYSICIAN Referring Physician: Julian SOURCE Source: Chart review HISTORY OF PRESENT ILLNESS HISTORY OF PRESENT ILLNESS This is a 69 yo male admitted for altered mental status and significant weakness. He has cirrhosis and has had multiple paracentesis recently. His appetite has been very poor and presently he is confused but not in any respiratory distress otherwise he has significant metabolic derangement with significant lactic acidosis and ANSON prompting urgent HD. He is hypotensive and today he has been noted with tachycardia. Per review he was in SR at first and today per review noted with with abberant AFIB with RVR but no VT. No family at the bedside and due to pt mentation no details of symptoms is limited. Has hx of PAFIB but no known CAD. He is on pressor support with likely advance stage liver cirrhosis and hepatic encephalopathy. Unable to provide any AV aisha blocking agents due to low BP. Digoxin was given his HR improved from 150s to 120s. PAST MEDICAL HISTORY Cardiovascular: AFIB, HTN Pulmonary: Other (LIZZIE) GI: GERD, Other (ascites) Heme/Onc: Anemia NOS Hepatobiliary: Cirrhosis (SHELBY), Other (portal HTN, esophageal varices) Musculoskeletal: Osteoarthritis Renal/: Chronic renal insuff Endocrine: Diabetes PAST SURGICAL HISTORY Past Surgical History: Hernia Repair, Colon Resection FAMILY HISTORY Family History: Family History Unknown SOCIAL HISTORY Lives: Long-Term CURRENT MEDICATIONS CURRENT MEDICATIONS Current Medications Medications (Trade) Dose Ordered Sig/Karley Route PRN Reason Start Time Stop Time Status Last Admin Dose Admin Meropenem 500 mg/ Sodium Chloride 50 ml @ 100 mls/hr DAILY IV 02/29/20 09:00 02/29/20 11:11 DC 02/29/20 09:30 Metronidazole 100 ml @ 100 mls/hr Q8HRS IV 02/29/20 08:00 02/29/20 11:11 DC 02/29/20 09:32 Digoxin (Lanoxin) 500 mcg 1X ONCE IV 02/29/20 09:00 02/29/20 09:01 DC 02/29/20 08:40 Lorazepam (Ativan Inj) 2 mg PRN Q1HR PRN IVP ANXIETY / AGITATION 02/29/20 11:00 02/29/20 11:28 Morphine Sulfate (Morphine Sulfate) 4 mg PRN Q1HR PRN IV PAIN 02/29/20 11:00 02/29/20 11:28 Glycopyrrolate (Robinul) 1 mg 1X ONCE IV 02/29/20 11:45 02/29/20 11:46 DC 02/29/20 11:28 ALLERGIES ALLERGIES: Coded Allergies: No Known Drug Allergies (Unverified , 02/26/20) ROS Review of System unreliable, encephalopathic PHYSICAL EXAM General: mild distress, Other (drowsy) HEENT: Atraumatic Lungs: Other (diminished) Heart: Other (AFIB RVR) Abdomen: Other (ascites) Extremities: No cyanosis, Other (2+ bilateral LE pitting edema) Skin: No breakdown Psych/Mental Status: Other (drowsy, confused) MUSCULOSKELETAL: Osteoarthritic changes both hands VITALS/I&O VITALS/I&O: Vital Signs Date Time Temp Pulse Resp B/P (MAP) Pulse Ox O2 Delivery O2 Flow Rate FiO2 02/29/20 12:00 Room Air 02/29/20 11:28 18 02/29/20 11:00 112 99/73 (82) 96 02/29/20 08:00 98.4 98.4 I & O 02/28/20 02/28/20 02/29/20 15:00 23:00 07:00 Intake Total 100 ml 1884 ml 2381.2 ml Output Total 5 ml 15 ml 0 ml Balance 95 ml 1869 ml 2381.2 ml LABS Lab: Laboratory Tests Test 02/29/20 05:30 02/29/20 09:36 White Blood Count 38.0 x10^3/uL (4.0-11.0) H Red Blood Count 4.44 x10^6/uL (4.30-5.70) Hemoglobin 13.6 g/dL (13.0-17.5) Hematocrit 41.6 % (39.0-53.0) Mean Corpuscular Volume 94 fL (79-100) Mean Corpuscular Hemoglobin 31 pg (25-35) Mean Corpuscular Hemoglobin Concent 33 g/dL (31-37) Red Cell Distribution Width 18.2 % (11.5-14.5) H Platelet Count 51 x10^3/uL (140-400) L Sodium Level 134 mmol/L (136-145) L Potassium Level 4.2 mmol/L (3.5-5.1) Chloride Level 89 mmol/L (98-107) L Carbon Dioxide Level 13 mmol/L (21-32) L Anion Gap 32 (6-14) H Blood Urea Nitrogen 63 mg/dL (8-26) H Creatinine 4.7 mg/dL (0.7-1.3) H Estimated GFR (Cockcroft-Gault) 12.4 BUN/Creatinine Ratio 13 (6-20) Glucose Level 110 mg/dL (70-99) H Lactic Acid Level 20.6 mmol/L (0.4-2.0) *H Calcium Level 7.5 mg/dL (8.5-10.1) L Phosphorus Level 5.3 mg/dL (2.6-4.7) H Magnesium Level 2.8 mg/dL (1.8-2.4) H Total Bilirubin 2.5 mg/dL (0.2-1.0) H Aspartate Amino Transferase (AST) 333 U/L (15-37) H Alanine Aminotransferase (ALT) 86 U/L (16-63) H Alkaline Phosphatase 95 U/L (46-116) Total Protein 6.1 g/dL (6.4-8.2) L Albumin 2.1 g/dL (3.4-5.0) L Albumin/Globulin Ratio 0.5 (1.0-1.7) L Procalcitonin 7.27 ng/mL (0.00-0.10) H Glucose (Fingerstick) 101 mg/dL (70-99) H Laboratory Tests 02/29/20 05:30 Laboratory Tests 02/29/20 05:30 ASSESSMENT/PLAN ASSESSMENT/PLAN 1. Aberrant AFIB with RVR: noted hx of paroxysms due to significant metabolic derangement 2. Severe sepsis/shock with bacteremia 3. Severe ANSON: post dialysis 4. Advanced stage cirrhosis with severe ascites: S/P multiple paracentesis 5. Severe metabolic acidosis 6. Hepatic encephalopathy Recommendations 1. Rate with some improvement with Digoxin x1. Continue levophed. Very poor prognosis, family is considering hospice. 2. Multiple consultants with advanced stage liver failure. Supportive care. ISHAN DURHAM APRN Feb 29, 2020 13:53
--- NOTE | 2020-02-29 15:05 | PN ---
DATE: 02/29/2020 SUBJECTIVE: The patient is not doing well today. He is hypotensive, tachycardic. Blood pressure is only 75/40 the time I saw him. He moans and groans. He does respond verbally. He drifts back to sleep. His lactic acid has risen further to 20.6. The CT scan of the abdomen yesterday showed no evidence of obstruction or bowel ischemia. He has a subcutaneous mass along the left lower quadrant that may represent a seroma within the subcutaneous scar, ascites within tiny hernia. Has advanced morphologic changes of cirrhosis, large ascites, bowel wall thickening, likely reflect portal hypertension. Correlate to exclude enterocolitis. He has aorta and renal ultrasound, which showed that the exam was limited due to the patient's body habitus and ascites. Left kidney measures 10.3. The right kidney could not be visualized. Henning catheter identified in the urinary bladder, large ascites. PHYSICAL EXAMINATION: GENERAL: When I examined him, he looked pale, jaundiced, but not cyanosed. No lymphadenopathy, no thyromegaly. No jugular venous distention. No lower limb edema. VITAL SIGNS: His heart rate is up to 140 and 150, blood pressure was 75/40, temperature was 98.6, respiratory rate 22, and oxygen saturation was 96%. HEENT: Showed normocephalic, atraumatic. NECK: Supple. HEART: Showed normal first and second heart sounds. No gallop, rub or murmur. CHEST: Shows central trachea, equal bilateral chest expansion, air entry, vesicular sounds. No crepitation or rhonchi. ABDOMEN: Distended, soft, nontender. NEUROLOGIC: He is encephalopathic. His intake over the last 24 hours was 4200. No output was recorded. LABORATORY WORK: Showed a serum sodium 134, potassium 4.2, chloride 89, bicarbonate 13, anion gap of 32, BUN 63, creatinine 4.7, estimated GFR was 12 mL per minute. His glucose was 110, calcium was 7.5, phosphorus was 5.3, magnesium was 2.8. Total bilirubin, AST and ALT are elevated. Alkaline phosphatase is normal. Total protein 6.1, albumin 2.1. His lactic acid is went up to 20.6. ASSESSMENT: 1. Sepsis, severe with growth of Gram-negative rods identified as Escherichia coli. 2. Acute kidney injury, for which he was dialyzed yesterday. 3. Hypertension with worsening lactic acidosis, more likely due to hypoperfusion. 4. He has massive ascites and underwent paracentesis and about 5-1/2 liters of fluid were removed. The cell count was 2265, which ____ polymorphs indicating probably has spontaneous bacterial peritonitis. 5. Hypertension. The patient is actually hypotensive. Atrial fibrillation with rapid ventricular response, for which I consulted the endoscope technician. 6. Type 2 diabetes mellitus, seems to be reasonably controlled. His blood sugar has been well within normal range. PLAN: To continue with Levophed. Continue with IV antibiotic. Continue with hemodialysis. He apparently did not do well with his video swallowing evaluation. I will consult the social work program coordinator to consider TPN. I ordered a 12-lead EKG and also a liter of normal saline. We have to start him on Levophed to maintain mean arterial pressure of 65 mmHg or above. His overall prognosis is extremely poor. I will talk to his DPOA regarding his overall poor prognosis. JORGE LUIS CARLTON MD DR: ZACK/lauryn JOB#: [id number] / [id number]
--- NOTE | 2020-03-14 10:18 | DS ---
DATE OF DISCHARGE: 02/29/2020 DISCHARGE SUMMARY HOSPITAL COURSE: The patient is a 69-year-old male patient who was admitted through the Emergency Room from [facility] as he was noted by nursing staff to be hypotensive and also somewhat lethargic and very weak. He denied, however, any nausea, vomiting, diarrhea or constipation. Denied any hematemesis, melena, or hematochezia. He underwent paracentesis and approximately 26 liters of ascitic fluid were removed. The patient stated that since that time, he has been on a progressive decline, his systolic pressure was only 70. The patient has not been eating or drinking. He was evaluated in the Emergency Room and on arrival, his systolic pressure was only 70. His lab work showed he has mild leukocytosis and he has also hyponatremia and acute kidney injury. His BUN has dramatically risen to 105, creatinine was 5.9. He has severe hypoalbuminemia with serum albumin is only 1.6 and hypomagnesemia. His arterial blood gases showed a pH of 7.13, pCO2 of 16, bicarb of 5. His prothrombin time was 18, INR of 1.5. He was admitted with acute renal failure, likely due to fluid shift versus hepatorenal syndrome. He has also possible sepsis. His serum lactic acid was elevated up to 13.3. The patient did receive 2 liters of fluid in the Emergency Room and by the time he was admitted to ICU, his blood pressure was up to 98/51, although he continued to be extremely oliguric and lethargic. He was seen in consultation by the Infectious Disease specialist as well as the status controller and the software security architect. Despite aggressive treatment with IV fluid and also 25% human albumin, he continued to do poorly. He underwent paracentesis and about 2 liters of fluid were drained. The ascitic fluid showed that the ascitic fluid was yellow, hazy with a total nucleated cells of 2265, for which 89% were polymorphonuclear. The glucose was 199. Total protein was 0.9. LDH was 86 and fluid amylase was 5. His coronavirus by PCR was negative and hepatitis B antigen was nonreactive. Hepatitis B surface antibody quantified was positive and despite aggressive treatment with IV fluid, IV antibiotics as recommended by the Infectious Disease specialist and also the software security architect, the patient continued to do poorly and his DPOA, his best friend, stated that his code status will DNR/DNI and opted for comfort care and therefore, the patient was started on morphine drip. The patient went in comfort care at around 11:00. His DPOA was at bedside, all aggressive care was stopped. The patient was pronounced at 12:46 p.m. on 02/29/2020. CAUSE OF : Acute cardiopulmonary arrest; acute kidney injury; severe sepsis, likely due to gram-negative rods identified as Escherichia coli; hypotension with worsening lactic acidosis, most likely hypoperfusion, has massive ascites, underwent paracentesis, with finding consistent with spontaneous bacterial peritonitis. JORGE LUIS CARLTON MD DR: ZACK/lauryn JOB#: [id number] / [id number]
== END 2020-02-29 14:21 | disposition expired | DRG 871 ==
LOC: ER 12:12 → 1 WEST ICU 13:52 → MERGE 13:52 → 1 WEST ICU 02-28 01:01
PROVIDERS: ADMIT Internal Medicine; ATTEND Internal Medicine
PROC: 0W9G3ZZ Drainage of Peritoneal Cavity, Percutaneous Approach (ICD-10-PCS; principal; 2020-02-26)
PROC: 02HV33Z Insertion of Infusion Device into Superior Vena Cava, Percutaneous Approach (ICD-10-PCS; 2020-02-27)
PROC: 02HV33Z Insertion of Infusion Device into Superior Vena Cava, Percutaneous Approach (ICD-10-PCS; 2020-02-27)
PROC: B548ZZA Ultrasonography of Superior Vena Cava, Guidance (ICD-10-PCS; 2020-02-27)
PROC: 5A1D70Z Performance of Urinary Filtration, Intermittent, Less than 6 Hours Per Day (ICD-10-PCS; 2020-02-27)
PROC: 5A1D70Z Performance of Urinary Filtration, Intermittent, Less than 6 Hours Per Day (ICD-10-PCS; 2020-02-28)
DX: A41.51 Sepsis due to Escherichia coli [E. coli] (principal); R65.21 Severe sepsis with septic shock; N17.0 Acute kidney failure with tubular necrosis; J98.11 Atelectasis; K76.6 Portal hypertension; E87.1 Hypo-osmolality and hyponatremia; R18.8 Other ascites; E11.22 Type 2 diabetes mellitus with diabetic chronic kidney disease; E83.42 Hypomagnesemia; E88.09 Other disorders of plasma-protein metabolism, not elsewhere classified; G47.33 Obstructive sleep apnea (adult) (pediatric); I12.9 Hypertensive chronic kidney disease with stage 1 through stage 4 chronic kidney disease, or unspecified chronic kidney disease; I48.0 Paroxysmal atrial fibrillation; K21.9 Gastro-esophageal reflux disease without esophagitis; K72.90 Hepatic failure, unspecified without coma; K74.60 Unspecified cirrhosis of liver; Z20.828 Contact with and (suspected) exposure to other viral communicable diseases; Z66 Do not resuscitate; Z79.84 Long term (current) use of oral hypoglycemic drugs; Z90.49 Acquired absence of other specified parts of digestive tract; E66.01 Morbid (severe) obesity due to excess calories; M19.90 Unspecified osteoarthritis, unspecified site; N18.3 Chronic kidney disease, stage 3 (moderate); Z99.2 Dependence on renal dialysis; Z68.34 Body mass index [BMI] 34.0-34.9, adult
CPT/HCPCS: 36415; 36556; 36600; 49083; 71045; 74176; 76705; 76775; 76937; 80053; 82140; 82150; 82805; 82945; 82962; 83605; 83615; 83735; 84100; 84145; 84157; 84443; 84484; 85007; 85025; 85027; 85610; 86317; 87040; 87071; 87075; 87077; 87186; 87205; 87340; 88112; 88305; 89050; 93005; 96361; 96365; 96368; 96375; 99291; C1892; J0692; J0878; J1160; J1815; J2060; J2185; J2248; J2270; J2543; J3490; J7030; J7060; P9046; 92610-GN; G0378; U0003-CS